=== PATIENT | male | born 1950 | race Caucasian/White ===

== ENCOUNTER 2020-02-02 12:37 | Observation (INO) | payer OTHER, SELFPAY ==
[2020-02-02] VITALS (17 sets, daily range): BP systolic 110–124; BP diastolic 76–97; PULSE 66–133; RESP 20–29; TEMP 36.4–36.6; O2SAT 92–99; BMI 28.7; BMI 29.9
--- NOTE | 2020-02-02 12:58 | DI.RAD.S_ITS ---
PROCEDURE: XR CHEST 1V INDICATIONS: chest pain TECHNIQUE: One view of the chest was acquired. COMPARISON: None. FINDINGS: Surgical changes and devices: None. Lungs and pleura: There is mild diffuse reticulonodular pulmonary density.. No pleural effusions or pneumothorax. Mediastinum: Mediastinal contours appear normal. Heart size is normal. Bones and chest wall: No suspicious bony lesions. Overlying soft tissues appear unremarkable. IMPRESSION: Mild diffuse edema versus atypical pneumonia. Dictated by: Cristina Piedra M.D. on 02/02/2020 at 13:36 Approved by: Cristina Piedra M.D. on 02/02/2020 at 13:36
[2020-02-02 13:05] LABS: Add Manual Diff / Slide Review NO; Basophils Absolute Auto 0 /uL (0-100); Basophils Percent Auto 0.8 % (0-2); Eosinophils Absolute Auto 100 /uL (0-450); Hematocrit 42.6 % (41-53); Hemoglobin 14.3 g/dL (13.5-17.5); Lymphocytes Absolute Auto 1500 /uL (1100-4500); Mean Corpuscular HGB Conc 33.7 % (30-36); Mean Corpuscular Hemoglobin 30.9 PG (26-34); Mean Corpuscular Volume 91.6 fL (80-100); Monocytes Absolute Auto 600 /uL (0-900); Monocytes Percent Auto 10.2 % (3-14); Neutrophils Absolute Auto 3500 /uL (1500-7000); Platelet Count 144 X10^3/uL (150-400); Red Blood Cell Count 4.65 X10^6/uL (4.5-5.9); Red Cell Distribution Width 13.9 % (11.6-14.8); White Blood Cell Count 5.7 X10^3/uL (4.5-11.0)
[2020-02-02 13:12] LABS: PTT Partial Thromboplastin Tim 35 SECONDS (26.4-36.2)
[2020-02-02 13:15] LABS: Alanine Aminotransferase 23 IU/L (<50); Albumin 4.1 g/dL (3.5-5.0); Albumin Globulin Ratio 1.6 (1.0-2.8); Alkaline Phosphatase 53 U/L (38-126); Aspartate Aminotransferase 25 IU/L (17-59); Blood Urea Nitrogen 20 mg/dL (9-20); Carbon Dioxide 24 mmol/L (22-32); Chloride 109 mmol/L (98-107); Creatine Kinase 152 U/L (55-170); Estimated Glomerular Filt Rate > 60.0 mL/min (>60); Globulin 2.6 g/dL (1.7-4.1); Glucose 88 mg/dL (80-110); HEMOLYSIS 49 (0-50); Lipase 69 U/L (23-300); Magnesium 2.3 mg/dL (1.6-2.3); Potassium 4.6 mmol/L (3.4-5.1); Sodium 138 mmol/L (137-145); Total Protein 6.7 g/dL (6.3-8.2)
[2020-02-02] MEDS: dilTIAZem 5 MG/ML SDV 10 MG IV (13:16)
[2020-02-02 13:21] LABS: D Dimer 394 ng/mL (<230)
[2020-02-02 13:26] LABS: NT-proBNP (BNP-Adult 18+) 1230 pg/mL (<125); Troponin I < 0.012 ng/mL (0.01-0.034)
[2020-02-02] MEDS: DILTIAZEM 125 MG/125 ML PIGGYBACK IV (13:29)
[2020-02-02 13:30] LABS: CKMB % Relative Index 1.6 % (1.5-5.0); Creatine Kinase MB 2.48 ng/mL (<2.37)
[2020-02-02] MEDS: SODIUM CHLORIDE 0.9% 1,000 ML 1000 ML IV (13:30)
[2020-02-02 14:00] LABS: TSH w/ Reflex to FT4 4.05 uIU/mL (0.47-4.68)
--- NOTE | 2020-02-02 14:54 | DI.ECHO.S_ITS ---
[facility]---------+ [facility] +---------+ : : [address] : : : : [id number] : : : : Phone: [phone] Echocardiogram Report + + :Name: LIN ARTEAGA Study Date: 02/03/2020 Height: 70 in : :[facility] Weight: 200 lb : : Gender: Male BSA: 2.1 m2 : :: 1950 Age: 69 yrs BP: 108/86 mmHg: :Reason For Study: AFIB : :Ordering Physician: HOSPITALIST, : :SIMÓN Performed By: Amanda Cali : :Referring: JOSIE SAHA : + + Interpretation Summary The left ventricle is normal in size. Left ventricular systolic function is low normal. The ejection fraction is estimated to be 50-55%. There are no focal wall motion abnormalities. Diastolic function could not be accurately assessed due to atrial fibrillation. The right ventricle is at the upper limits of normal in size. Right ventricular systolic function is at the lower limits of normal. The right ventricular systolic pressure is estimated to be at least 35 mmHg based on an estimated right atrial pressure of 8 mm Hg. The left atrium is severely dilated. The right atrium is moderate to severely dilated. There is moderate mitral regurgitation. There is mild to moderate tricuspid regurgitation. There is no other significant valvular heart disease. The aortic root is borderline dilated. The ascending aorta is moderately enlarged. Procedure: A two-dimensional transthoracic echocardiogram with color flow and Doppler was performed. The study quality was technically adequate. There is no prior echocardiogram noted for this patient. The patient was in atrial fibrillation with heart rates between 66-100 bpm during the exam. Left Ventricle: The left ventricle is normal in size. There is normal left ventricular wall thickness. Proximal septal thickening is noted. Left ventricular systolic function is low normal. The ejection fraction is estimated to be 50-55%. There are no focal wall motion abnormalities. Diastolic function could not be accurately assessed due to atrial fibrillation. Right Ventricle: The right ventricle is at the upper limits of normal in size. Right ventricular systolic function is at the lower limits of normal. Atria: The left atrium is severely dilated. The right atrium is moderate to severely dilated. There is no Doppler evidence for an interatrial shunt. Mitral Valve: The mitral valve leaflets appear mildly thickened, but open well. There is mild mitral annular calcification. There is moderate mitral regurgitation. Aortic Valve: The aortic valve is trileaflet. The aortic valve opens well. The aortic valve is slightly calcified. There is no aortic valve stenosis. There is trace aortic regurgitation. Tricuspid Valve: The tricuspid valve is normal in structure and function. The right ventricular systolic pressure is estimated to be at least 35 mmHg based on an estimated right atrial pressure of 8 mm Hg. There is mild to moderate tricuspid regurgitation. Pulmonic Valve: The pulmonic valve leaflets are thin and pliable; valve motion is normal. There is mild pulmonic regurgitation. There is no other significant valvular heart disease. Great Vessels: The aortic root is borderline dilated. The ascending aorta is moderately enlarged. The IVC is dilated (diameter is greater than 2.1 cm) yet it collapses greater than 50% with a sniff. This suggests a right atrial pressure of 8 mm Hg. Pericardium/ Pleura There is no pericardial effusion. There is no pleural effusion. MMode/2D Measurements & Calculations LVIDd: 5.1 cm LVOT diam: 2.1 cm LVIDs: 3.9 cm Ao root diam: 3.7 cm FS: 23.3 % asc Aorta Diam: 4.5 cm EPSS: 0.81 cm Ao Arch Diam (Prox Trans): 3.9 cm IVSd: 1.1 cm LVPWd: 0.86 cm LV manjarrez. diameter/BSA (cm/m^2): 2.4 LV sys. diameter/BSA (cm/m^2): 1.9 LA A2 area: 29.7 cm2 RA long axis: 6.3 cm LA A4 area: 28.6 cm2 RA area: 26.1 cm2 LA length (vol): 6.6 cm RA vol: 92.8 ml LA vol: 109.5 ml RA : 44.5 ml/m2 LA vol index: 52.5 ml/m2 IVC diam: 2.4 cm RVD1 (basal): 4.2 cm TAPSE: 1.6 cm Doppler Measurements & Calculations Ao V2 max: 116.4 cm/sec LVOT Max Tyron: 81.4 cm/sec Ao V2 mean: 79.8 cm/sec LV V1 max P.7 mmHg Ao max P.4 mmHg LV V1 VTI: 14.8 cm Ao mean P.9 mmHg CARLEEN(I,D): 2.5 cm2 Ao V2 VTI: 20.0 cm CARLEEN(V,D): 2.4 cm2 sev ratio: 0.74 CARLEEN indexed to BSA (cm^2/m^2): 1.2 MV E max tyron: 122.8 cm/sec TR max tyron: 260.7 cm/sec MV A max tyron: 1.8 cm/sec TR max P.2 mmHg MV E/A: 68.7 PA V2 max: 76.0 cm/sec Med Peak E' Tyron: 8.5 cm/sec PA V2 mean: 47.4 cm/sec E/E' med: 14.5 PA mean P.1 mmHg Lat Peak E' Tyron: 5.9 cm/sec PA pr(Accel): 35.3 mmHg E/E' lat: 20.9 E/e' average: 17.7 MV dec time: 0.13 sec SV(LVOT): 50.7 ml Reading Physician:01:40 PM
--- NOTE | 2020-02-02 14:55 | P.HP_ITS ---
History of Present Illness History of Present Illness Date Patient Seen: 02/02/20 Time Patient Seen: 14:55 Chief complaint: Tachycardia Narrative: Jose A Guzman is a 69-year-old male with past medical history hypertension, BPH who was referred from his primary care provider for an elevated heart rate. Patient was seeing his PMD today for some right shoulder pain which he has been experiencing when he was noted to have a heart rate in the 130s. EKG showed atrial fibrillation. Patient was sent to the emergency room for further evaluation. He denies any recent symptoms including palpitations, chest pain, shortness of breath, dizziness. He denies any orthop lenny, lower extremity edema, nausea, vomiting, or abdominal pain. He has had no recent fevers or chills. Patient is active and hikes multiple miles without any issues. He denies any history of atrial fibrillation in the past. Patient does state that he developed a cough on lisinopril, but also has a mild essential tremor for which his primary care doctor was going to the put him on a treatment for both his blood pressure and the tremor, however he has not started this medication yet. In the emergency room, patient was tachycardic into the 130s, but remainder of vital signs were unremarkable. EKG showed atrial flutter with 2-1 conduction and a bifascicular block. Initial chemistries were unremarkable including a potassium of 4.6, and a magnesium of 2.3. Initial troponin was negative. ProBNP was elevated at 1230. TSH was unremarkable at 4.05. D-dimer was negative for age at 394. CBC showed a mild thrombocytopenia with a platelet count of 144. He does not have any previous lab results in our electronic healthcare record. Patient was given 10 mg of IV diltiazem and started on a diltiazem infusion in the emergency room. He was subsequently admitted to the ICU on a diltiazem i nfusion for atrial fibrillation/flutter. Patient History Family & Social History Safety & Behavioral: Feels Safe in Current Yes Environment Been Physically Hurt or No Threatened By a Person Tobacco & Substance use: Smoking Status Never smoker alcohol intake frequency holiday/special occasion Substance Use Type does not use Meds Home Medications and Allergies Home Medications Medication Instructions Recorded Confirmed Type lisinopril 02/02/20 History sertraline mg 02/02/20 History tamsulosin mg PO 02/02/20 History Allergies Allergy/AdvReac Type Severity Reaction Status Date / Time No Known Drug Allergies Allergy Verified 02/02/20 13:13 Review of Systems Review of Systems Narrative: All other systems reviewed with the patient and are negative unless otherwise stated. Exam Vital Signs (past 8 hours): - 02/02/20 12:57 02/02/20 13:16 02/02/20 13:37 Temperature 98 F Pulse Rate 130 H 133 H Respiratory Rate 20 Blood Pressure 124/97 H 119/85 120/86 Pulse Oximetry 96 02/02/20 13:38 02/02/20 13:45 02/02/20 14:00 Temperature Pulse Rate 128 H 128 H 124 H Respiratory Rate 26 H 24 25 H Blood Pressure 118/83 116/88 Pulse Oximetry 92 96 95 02/02/20 14:15 Temperature Pulse Rate 122 H Respiratory Rate 29 H Blood Pressure 110/84 Pulse Oximetry 96 Oxygen Delivery Method Room Air Narrative Exam Narrative: GENERAL APPEARANCE: Well developed, well nourished, in no acute distress. SKIN: Inspection of the skin reveals no rashes, ulcerations or petechiae. HEENT: Normocephalic atraumatic, extraocular muscles are intact, oropharynx is clear and mucous membranes are moist, neck is supple without adenopathy NECK: Supple and symmetric. There was no thyroid enlargement, and no tenderness, or masses were felt. CHEST: Normal AP diameter and normal contour without any kyphoscoliosis. LUNGS: Auscultation of the lungs revealed no wheezes, rhonchi, or rales. CARDIOVASCULAR: Tachycardic, with regular rhythm but intermittently irregularly irregular without any murmurs, gallops, rubs. Peripheral pulses were 2+ and sym metric. ABDOMEN: Soft and nontender with normal bowel sounds. No ascites was noted. MUSCULOSKELETAL: There was no tenderness or effusions noted. Muscle strength and tone were normal. EXTREMITIES: No cyanosis, clubbing or edema. NEUROLOGIC: Alert and oriented x 3. Normal affect. Gait was normal. Strength is +5/5 in the Upper Extremities and Lower Extremities Bilaterally. Sensation to touch was normal. Objective Labs Result Diagrams: 02/02/20 12:30 02/02/20 12:30 Labs: Laboratory Results - last 24 hr 02/02/20 02/02/20 02/02/20 12:30 12:30 12:30 WBC 5.7 RBC 4.65 Hgb 14.3 Hct 42.6 MCV 91.6 MCH 30.9 MCHC 33.7 RDW 13.9 Plt Count 144 L Neut % (Auto) 61.0 Lymph % (Auto) 26.0 [place] % (Auto) 10.2 Eos % (Auto) 2.0 Baso % (Auto) 0.8 Neut # (Auto) 3500 Lymph # (Auto) 1500 [place] # (Auto) 600 Eos # (Auto) 100 Baso # (Auto) 0 PT 12.0 INR 1.0 APTT 35 D-Dimer Sodium 138 Potassium 4.6 Chloride 109 H Carbon Dioxide 24 BUN 20 Creatinine 0.80 Estimated GFR > 60.0 BUN/Creatinine Ratio 25.0 H Glucose 88 Calcium 9.0 Magnesium 2.3 Total Bilirubin 1.0 AST 25 ALT 23 Alkaline Phosphatase 53 Total Creatine Kinase 152 CK-MB (CK-2) 2.48 H CK-MB (CK-2) Rel Index 1.6 Troponin I < 0.012 NT-Pro-B Natriuret Pep 1230 H Total Protein 6.7 Albumin 4.1 Globulin 2.6 Albumin/Globulin Ratio 1.6 Lipase 69 TSH 02/02/20 02/02/20 12:30 12:30 WBC RBC Hgb Hct MCV MCH MCHC RDW Plt Count Neut % (Auto) Lymph % (Auto) [place] % (Auto) Eos % (Auto) Baso % (Auto) Neut # (Auto) Lymph # (Auto) [place] # (Auto) Eos # (Auto) Baso # (Auto) PT INR APTT D-Dimer 394 H Sodium Potassium Chloride Carbon Dioxide BUN Creatinine Estimated GFR BUN/Creatinine Ratio Glucose Calcium Magnesium Total Bilirubin AST ALT Alkaline Phosphatase Total Creatine Kinase CK-MB (CK-2) CK-MB (CK-2) Rel Index Troponin I NT-Pro-B Natriuret Pep Total Protein Albumin Globulin Albumin/Globulin Ratio Lipase TSH 4.05 Assessment & Plan Assessment & Plan narrative: Jose A Guzman is a 69-year-old male with past medical history hypertension, BPH who was referred from his primary care provider for an incidentally found elevated heart rate. He is admitted with atrial flutter with rapid ventricular response. 1. Atrial fibrillation/flutter with rapid ventricular response, unknown type or duration, present on admission -patient with a new diagnosis of atrial fibrillation/flutter -he is currently asymptomatic -chest x-ray shows possible fluid overload and he does have some bibasilar crackles, but without symptoms this may be due to acute onset of atrial fibrillation. ProBNP elevated at 1230. If he becomes more short of breath or hypoxic will start Lasix therapy. -patient was started on IV diltiazem infusion the emergency room. Will attempt to titrate off of this, and will start metoprolol 25 mg twice daily starting now. -chads Vasc score of 2 currently, discussed stroke risk with patient and he elects to start anticoagulation at this time. Will start with apixaban 5 mg twice daily starting now. -will obtain a complete echocardiogram -TSH unremarkable at 4. Further risk stratify with fasting lipids and A1c. 2. Hypertension, chronic, stable -patient was going to switch between his current lisinopril which he complains of a chronic cough with and a beta-elis. Will continue to hold lisinopril at this time and optimize rate control with beta-elis therapy preferentially. He is currently normotensive. 3. BPH, chronic, stable -patient is currently asymptomatic -continue home Flomax Code: Full, states his surrogate decision maker is his . Dispo: Admitted to the ICU for atrial fibrillation requiring diltiazem infusion DVT: Will start full-dose anticoagulation with apixaban COVID 19 status: no current symptoms, testing ordered and pending. COVID-19 COVID-19 status: Result pending Result date/Date tested (Pos, Neg/Pending): 02/02/20 Scores CHADS-VASc Congestive heart failure: no Hypertension: yes Age 75 years or older: no Diabetes mellitus: no Stroke, TIA, or TE: no Vascular disease: no Age 65 to 74 years: yes Sex category (female): Male CHADS-VASc Score: 2
[2020-02-02] MEDS: APIXABAN 5 MG TABLET PO ×2 (15:44→20:31)
[2020-02-02] MEDS: METOPROLOL ER 25 MG TABLET PO ×2 (15:44→20:31)
[2020-02-02 16:25] LABS: COVID19 -Nasal RAPID Negative (Negative)
--- NOTE | 2020-02-02 20:29 | ED_ITS ---
HPI - Arrhythmia/Palpitations General Chief Complaint: Arrhythmia/Palpitations Stated Complaint: Tachycardia Time Seen by Provider: 02/02/20 13:05 Source: patient Mode of arrival: EMS Limitations: no limitations History of Present Illness HPI narrative: CC: Rapid HR. HPI: The patient is a 69-year-old male who states that he went to the office to have his shoulder checked out and Dr. Painter discovered that the patient had a rapid heart rate and sent him here to the emergency department to be further evaluated. The patient denies being aware that he has rapid heart rate and rib palpitations or racing of his heart. He does not know when this happened or develops. He has never before had rapid heart rate or been told that he had atrial fibrillation. The patient noticed that during the past week however he w as doing yd work and he is normally able to complete the task without taking multiple rests. However he divided the yd into sections because he just became more exhausted than usual and had to take break and rest. This is been going on over the last couple of days. He has been more fatigued and weaker than usual over the last few days. He denies any chest pain or shortness of breath as well as any neck pain shoulder pain jaw pain. He has had no back pain. He denies any fever chills or sweats as well as a headache any sore throat nasal drainage shortness of breath cough back pain. He has had no abdominal pain nausea vomiting diarrhea or any urinary symptoms. The patient denies smoking cigarettes or using marijuana or any other drugs he does drink alcohol periodically. He admits to a history of hypertension but has had no diabetes mellitus myocardial infarction asthma COPD or stroke. Related Data Home Medications Medication Instructions Recorded Confirmed lisinopril 10 mg PO BEDTIME 02/02/20 02/02/20 sertraline 25 mg PO DAILY 02/02/20 02/02/20 tamsulosin 0.4 mg PO DAILY 02/02/20 02/02/20 Allergies Allergy/AdvReac Type Severity Reaction Status Date / Time No Known Drug Allergies Allergy Verified 02/02/20 13:13 Review of Systems Review of Systems Narrative: His review of systems were all negative except for those mentioned in the history of present illness. Patient History Social History household members: spouse and children Smoking Status: Never smoker Smoking Status: Never smoker alcohol intake frequency: holidays/special occasions only Substance Use Type: does not use Exam Narrative Exam Narrative: PHYSICAL EXAM: CONSTITUTIONAL: Awake, Alert, Oriented, Coherent, Cooperative pleasant in NAD. Does not appear toxic or ill. HEAD: AT/NC EENT: PERRL, FROM of eyes, NOSE:No epistaxis or nasal drainage MOUTH:Oral mucosa is moist and pink, NECK: Supple, no obvious JVD, Trachea is midline without stridor, no palpable LN. SPINE: Palpation of the cervical, Thoracic, Lumbar or Sacral spine reveals no gross deformity or tenderness. No CVA tenderness. THORAX: No deformity, retractions, chest wall tenderness. LUNGS: Clear, symmetrical breath sounds without respiratory distress. HEART: Tachycardic irregular no appreciable murmur. ABDOMEN: Soft, non-tender, normal bowel sounds without guarding, rebound, rigidi ty or palpable mass. EXTREMITIES: No edema, deformity, tenderness or cyanosis. SKIN: No rash, bruising, petechiae or purpura. NEURO: Awake, alert, oriented, conversive, cranial nerves II-XII are symmetrical , moves all 4 extremities and is ambulatory. Initial Vital Signs Initial Vital Signs: Vital Signs Temperature 98 F 02/02/20 12:57 Pulse Rate 130 H 02/02/20 12:57 Respiratory Rate 20 02/02/20 12:57 Blood Pressure 124/97 H 02/02/20 12:57 Pulse Oximetry 96 02/02/20 12:57 Course Orders Ordered: ED Orders 02/02/20 12:30 Complete Blood Count AUTO DIFF Stat Comprehensive Metabolic Panel Stat D Dimer Stat Lipase Stat Magnesium Stat NT-proBNP (BNP-Adult 18+) Stat Partial Thromboplastin Time Stat Prothrombin Time INR Stat TSH w/ Reflex to FT4 Stat Troponin & CK Cardiac Panel Stat 02/02/20 12:58 XR chest 1V Stat EKG-12 Lead Stat Acetaminophen (Tylenol) 650 mg PO Q6HR PRN PRN Reason: Fever/Mild Pain (1-3) Apixaban (Eliquis) 5 mg PO BID GONZALO Last Admin: 02/02/20 20:31 Dose: 5 mg Documented by: DILTIAZEM (Diltiazem 125 Mg/125 Ml-D5w) 125 mg in 125 mls @ 5 mls/hr IV TITRATE GONZALO; Protocol Last Titration: 02/02/20 19:13 Dose: 0 mg/hr, 0 mls/hr Documented by: Titration: 02/02/20 18:46 Dose: 2.5 mg/hr, 2.5 mls/hr Documented by: Titration: 02/02/20 17:39 Dose: 5 mg/hr, 5 mls/hr Documented by: Titration: 02/02/20 16:49 Dose: 7.5 mg/hr, 7.5 mls/hr Documented by: Titration: 02/02/20 15:00 Dose: 10 mg/hr, 10 mls/hr Documented by: Admin: 02/02/20 13:29 Dose: 5 mg/hr, 5 mls/hr Documented by: GILBERTO Metoprolol Succinate (Toprol Xl) 25 mg PO BID GONZALO Last Admin: 02/02/20 20:31 Dose: 25 mg Documented by: Discontinued Medications Apixaban (Eliquis) 5 mg PO NOW ONE Stop: 02/02/20 14:54 Last Admin: 02/02/20 15:44 Dose: 5 mg Documented by: HU Diltiazem HCl (Cardizem) 10 mg IV NOW ONE Stop: 02/02/20 13:06 Last Admin: 02/02/20 13:16 Dose: 10 mg Documented by: GILBERTO Sodium Chloride (Normal Saline 0.9%) 1,000 mls @ 1,000 mls/hr IV BOLUS ONE Stop: 02/02/20 14:04 Last Infusion: 02/02/20 15:58 Dose: 0 mls/hr Documented by: Admin: 02/02/20 13:30 Dose: 1,000 mls/hr Documented by: GILBERTO Metoprolol Succinate (Toprol Xl) 25 mg PO NOW ONE Stop: 02/02/20 14:55 Last Admin: 02/02/20 15:44 Dose: 25 mg Documented by: HU Vital Signs Vital signs: Vital Signs - 8 hr 02/02/20 12:57 02/02/20 13:16 02/02/20 13:37 Temperature 98 F Pulse Rate 130 H 133 H Respiratory Rate 20 Blood Pressure 124/97 H 119/85 120/86 Pulse Oximetry 96 02/02/20 13:38 Temperature Pulse Rate 128 H Respiratory Rate 26 H Blood Pressure Pulse Oximetry 92 MDM - Arrhythmia/Palpitations Lab Data Result diagrams: 02/02/20 12:30 02/02/20 12:30 Labs: Lab Results 02/02/20 02/02/20 02/02/20 Range/Units 12:30 12:30 12:30 WBC 5.7 (4.5-11.0) X10^3/uL RBC 4.65 (4.5-5.9) X10^6/uL Hgb 14.3 (13.5-17.5) g/dL Hct 42.6 (41-53) % MCV 91.6 (80-100) fL MCH 30.9 (26-34) PG MCHC 33.7 (30-36) % RDW 13.9 (11.6-14.8) % Plt Count 144 L (150-400) X10^3/uL Neut % (Auto) 61.0 (50-75) % Lymph % (Auto) 26.0 (25-40) % [place] % (Auto) 10.2 (3-14) % Eos % (Auto) 2.0 (2-4) % Baso % (Auto) 0.8 (0-2) % Neut # (Auto) 3500 (1573-4975) /uL Lymph # (Auto) 1500 (6909-5784) /uL [place] # (Auto) 600 (0-900) /uL Eos # (Auto) 100 (0-450) /uL Baso # (Auto) 0 (0-100) /uL PT 12.0 (10.1-12.7) SECONDS INR 1.0 (0.9-1.3) APTT 35 (26.4-36.2) SECONDS D-Dimer (<230) ng/mL Sodium 138 (137-145) mmol/L Potassium 4.6 (3.4-5.1) mmol/L Chloride 109 H (98-107) mmol/L Carbon Dioxide 24 (22-32) mmol/L BUN 20 (9-20) mg/dL Creatinine 0.80 (0.66-1.25) mg/dL Estimated GFR > 60.0 (>60) mL/min BUN/Creatinine Ratio 25.0 H (6-22) Glucose 88 (80-110) mg/dL Calcium 9.0 (8.4-10.2) mg/dL Magnesium 2.3 (1.6-2.3) mg/dL Total Bilirubin 1.0 (0.2-1.3) mg/dL AST 25 (17-59) IU/L ALT 23 (<50) IU/L Alkaline Phosphatase 53 (38-126) U/L Total Creatine Kinase 152 (55-170) U/L CK-MB (CK-2) 2.48 H (<2.37) ng/mL CK-MB (CK-2) Rel Index 1.6 (1.5-5.0) % Troponin I < 0.012 (0.01-0.034) ng/mL NT-Pro-B Natriuret Pep 1230 H (<125) pg/mL Total Protein 6.7 (6.3-8.2) g/dL Albumin 4.1 (3.5-5.0) g/dL Globulin 2.6 (1.7-4.1) g/dL Albumin/Globulin Ratio 1.6 (1.0-2.8) Lipase 69 (23-300) U/L TSH (0.47-4.68) uIU/mL 02/02/20 02/02/20 Range/Units 12:30 12:30 WBC (4.5-11.0) X10^3/uL RBC (4.5-5.9) X10^6/uL Hgb (13.5-17.5) g/dL Hct (41-53) % MCV (80-100) fL MCH (26-34) PG MCHC (30-36) % RDW (11.6-14.8) % Plt Count (150-400) X10^3/uL Neut % (Auto) (50-75) % Lymph % (Auto) (25-40) % [place] % (Auto) (3-14) % Eos % (Auto) (2-4) % Baso % (Auto) (0-2) % Neut # (Auto) (9577-9748) /uL Lymph # (Auto) (3775-7610) /uL [place] # (Auto) (0-900) /uL Eos # (Auto) (0-450) /uL Baso # (Auto) (0-100) /uL PT (10.1-12.7) SECONDS INR (0.9-1.3) APTT (26.4-36.2) SECONDS D-Dimer 394 H (<230) ng/mL Sodium (137-145) mmol/L Potassium (3.4-5.1) mmol/L Chloride (98-107) mmol/L Carbon Dioxide (22-32) mmol/L BUN (9-20) mg/dL Creatinine (0.66-1.25) mg/dL Estimated GFR (>60) mL/min BUN/Creatinine Ratio (6-22) Glucose (80-110) mg/dL Calcium (8.4-10.2) mg/dL Magnesium (1.6-2.3) mg/dL Total Bilirubin (0.2-1.3) mg/dL AST (17-59) IU/L ALT (<50) IU/L Alkaline Phosphatase (38-126) U/L Total Creatine Kinase (55-170) U/L CK-MB (CK-2) (<2.37) ng/mL CK-MB (CK-2) Rel Index (1.5-5.0) % Troponin I (0.01-0.034) ng/mL NT-Pro-B Natriuret Pep (<125) pg/mL Total Protein (6.3-8.2) g/dL Albumin (3.5-5.0) g/dL Globulin (1.7-4.1) g/dL Albumin/Globulin Ratio (1.0-2.8) Lipase (23-300) U/L TSH 4.05 (0.47-4.68) uIU/mL Discharge Plan Departure Patient Disposition: Admitted as Observation Clinical Impression: Palpitations Atrial fibrillation Qualifiers: Atrial fibrillation type: unspecified Qualified Code(s): I48.91 - Unspecified atrial fibrillation Discharge Date/Time: 02/02/20 14:35 Instructions: Atrial Fibrillation, DI for Atrial Fibrillation Referrals: Ximena Canchola MD [Primary Care Provider] - Admit Date/Time: 02/02/20 13:40 Admit Provider: Elijah Jalloh
[2020-02-03] VITALS (20 sets, daily range): BP systolic 103–125; BP diastolic 57–87; PULSE 56–127; RESP 14–32; TEMP 36–37.1; O2SAT 93–97
[2020-02-03] MEDS: ACETAMINOPHEN 325 MG TABLET 650 MG PO (04:57)
[2020-02-03 05:22] LABS: Add Manual Diff / Slide Review NO; Basophils Absolute Auto 0 /uL (0-100); Basophils Percent Auto 0.6 % (0-2); Eosinophils Absolute Auto 100 /uL (0-450); Eosinophils Percent Auto 2.6 % (2-4); Hematocrit 41.2 % (41-53); Hemoglobin 13.9 g/dL (13.5-17.5); Lymphocytes Absolute Auto 1200 /uL (1100-4500); Lymphocytes Percent Auto 24.4 % (25-40); Mean Corpuscular HGB Conc 33.7 % (30-36); Mean Corpuscular Hemoglobin 30.9 PG (26-34); Mean Corpuscular Volume 91.6 fL (80-100); Monocytes Absolute Auto 500 /uL (0-900); Monocytes Percent Auto 10.5 % (3-14); Neutrophils Absolute Auto 3000 /uL (1500-7000); Neutrophils Percent Auto 61.9 % (50-75); Platelet Count 130 X10^3/uL (150-400); Red Blood Cell Count 4.49 X10^6/uL (4.5-5.9); Red Cell Distribution Width 13.5 % (11.6-14.8); White Blood Cell Count 4.8 X10^3/uL (4.5-11.0)
[2020-02-03 05:28] LABS: Alanine Aminotransferase 19 IU/L (<50); Albumin 3.4 g/dL (3.5-5.0); Albumin Globulin Ratio 1.5 (1.0-2.8); Alkaline Phosphatase 51 U/L (38-126); Aspartate Aminotransferase 18 IU/L (17-59); Bilirubin Total 1.4 mg/dL (0.2-1.3); Bilirubin Unconjugated 1.4 mg/dL (0.0-1.1); Blood Urea Nitrogen 18 mg/dL (9-20); Calcium 8.6 mg/dL (8.4-10.2); Carbon Dioxide 25 mmol/L (22-32); Chloride 109 mmol/L (98-107); Cholesterol 141 mg/dL (140-199); Estimated Glomerular Filt Rate > 60.0 mL/min (>60); Globulin 2.2 g/dL (1.7-4.1); Glucose 90 mg/dL (80-110); HDL Cholesterol 40 mg/dL (40-60); HEMOLYSIS < 15 (0-50); LDL Cholesterol Calculated 77 mg/dL (<100); Magnesium 2.2 mg/dL (1.6-2.3); Potassium 4.9 mmol/L (3.4-5.1); Sodium 137 mmol/L (137-145); Total Protein 5.6 g/dL (6.3-8.2); Triglycerides 120 mg/dL (35-150)
[2020-02-03 05:29] LABS: Hemoglobin A1C% w Est Avg Glu 5.4 % (4.0-6.0)
[2020-02-03 05:35] LABS: Troponin I 0.014 ng/mL (0.01-0.034)
--- NOTE | 2020-02-03 06:09 | PC.NURSE ---
Engineer Sergeant Note-Patient remains in A-flutter, rate 80s at rest, increases to 120s with activity, denies chest pain, palpitations, dizziness, or shortness of breath. Slept with his own C-pap, no additional O2, SpO2 90-98%, does have apnea. Tylenol given for right shoulder pain.
[2020-02-03] MEDS: APIXABAN 5 MG TABLET PO ×2 (07:39→20:35)
[2020-02-03] MEDS: METOPROLOL ER 25 MG TABLET PO (07:39)
[2020-02-03] MEDS: SODIUM CHLORIDE 0.9% FLUSH 10 ML IV ×2 (07:39→21:21)
[2020-02-03] MEDS: METOPROLOL ER 50 MG TABLET PO ×2 (08:42→20:34)
--- NOTE | 2020-02-03 08:49 | CM.DANOTE ---
Addendum entered by Basia Jacob LPN 02/03/20 10:34: Met with pt as planned during Team Bedside Rounds. Introduced self and role. Dr. Jalloh explained to all that pt was taken of of the diltiazem infusion and may need to go back on it. EHCO is planned. Pt lives with his in [place]. Plan: is home setting when stable for same. Original Note: Discharge Planning/Care Management DCP: assessment: Case received, EMR reviewed. Pt is a 69 year old male who admitted yesterday afternoon to care of hospitalist team. PCP: Ximena Canchola Payer: [employer] Admission status: in review by UR RN. Pt is functionally independent in the community and an active hiker. He is admitted to ICU setting from the ER on a diltiazem infusion. Will plan to see pt during Team Bedside Rounds. CM Discharge Assessment Start: 02/03/20 08:48 Freq: Status: Active Protocol: Document 02/03/20 08:49 ITV (Rec: 02/03/20 08:49 ITV [id number]) Discharge Planning Assessment Advance Directives? No History Provided By Medical Record Has Patient been admitted in last 30 No days? Prior Living Arrangements House Household Members spouse,children Independent with ADL's Yes Is patient alert and oriented? Yes Review Status In Process
--- NOTE | 2020-02-03 13:46 | PM.PN.1 ---
Subjective Subjective Date Patient Seen: 02/03/20 Time Patient Seen: 09:00 Interval history: Jose A Guzman is a 69-year-old male with a past medical history of hypertension who was admitted for a new diagnosis of atrial fibrillation/flutter with rapid ventricular response. Overnight he had hills diltiazem infusion turned off, however his rate began to increase today despite increasing doses of metoprolol and he needed to be restarted on diltiazem infusion. He still remains asymptomatic denying shortness of breath, chest pain, palpitations, dizziness, nausea, vomiting. Echocardiogram was performed which showed dilated left and right atria, but a ejection fraction of 50-55% with no focal wall motion abnormalities. Moderate MR and TR, but no other significant valvular abnormalities. Will now be able to add diltiazem oral given ejection fraction, to trying get him rate controlled off of diltiazem IV infusion. Exam Vital Signs (past 8 hours): - 02/03/20 07:36 02/03/20 08:07 02/03/20 09:53 Temperature 97.0 F L Pulse Rate 118 H 127 H 123 H Respiratory Rate 32 H 18 Blood Pressure 125/87 111/76 Pulse Oximetry 97 96 02/03/20 10:00 02/03/20 11:47 02/03/20 12:00 Temperature Pulse Rate 122 H 117 H 65 Respiratory Rate 19 32 H 21 Blood Pressure 108/86 103/84 119/80 Pulse Oximetry Oxygen Delivery Method Room Air Oxygen Flow Rate 0 Narrative Exam Narrative: GENERAL APPEARANCE: Well developed, well nourished, in no acute distress. SKIN: Inspection of the skin reveals no rashes, ulcerations or petechiae. HEENT: Normocephalic atraumatic, extraocular muscles are intact, oropharynx is clear and mucous membranes are moist, neck is supple without adenopathy NECK: Supple and symmetric. There was no thyroid enlargement, and no tenderness, or masses were felt. CHEST: Normal AP diameter and normal contour without any kyphoscoliosis. LUNGS: Auscultation of the lungs revealed no wheezes, rhonchi, or rales. CARDIOVASCULAR: Tachycardic, with regular rhythm but intermittently irregularly irregular without any murmurs, gallops, rubs. Peripheral pulses were 2+ and symmetric. ABDOMEN: Soft and nontender with normal bowel sounds. No ascites was noted. MUSCULOSKELETAL: There was no tenderness or effusions noted. Muscle strength and tone were normal. EXTREMITIES: No cyanosis, clubbing or edema. NEUROLOGIC: Alert and oriented x 3. Normal affect. Gait was normal. Strength is +5/5 in the Upper Extremities and Lower Extremities Bilaterally. Sensation to touch was normal. Objective Labs Result Diagrams: 02/03/20 04:45 02/03/20 04:45 Labs: Laboratory Results - last 24 hr 02/02/20 02/02/20 02/03/20 12:30 14:10 04:45 WBC 4.8 RBC 4.49 L Hgb 13.9 Hct 41.2 MCV 91.6 MCH 30.9 MCHC 33.7 RDW 13.5 Plt Count 130 L Neut % (Auto) 61.9 Lymph % (Auto) 24.4 L [place] % (Auto) 10.5 Eos % (Auto) 2.6 Baso % (Auto) 0.6 Neut # (Auto) 3000 Lymph # (Auto) 1200 [place] # (Auto) 500 Eos # (Auto) 100 Baso # (Auto) 0 Sodium Potassium Chloride Carbon Dioxide BUN Creatinine Estimated GFR BUN/Creatinine Ratio Glucose Hemoglobin A1c Calcium Magnesium Total Bilirubin Conjugated Bilirubin Unconjugated Bilirubin AST ALT Alkaline Phosphatase Troponin I Total Protein Albumin Globulin Albumin/Globulin Ratio Triglycerides Cholesterol LDL Cholesterol, Calc HDL Cholesterol TSH 4.05 COVID-19 PCR Negative 02/03/20 02/03/20 02/03/20 04:45 04:45 04:45 WBC RBC Hgb Hct MCV MCH MCHC RDW Plt Count Neut % (Auto) Lymph % (Auto) [place] % (Auto) Eos % (Auto) Baso % (Auto) Neut # (Auto) Lymph # (Auto) [place] # (Auto) Eos # (Auto) Baso # (Auto) Sodium 137 Potassium 4.9 Chloride 109 H Carbon Dioxide 25 BUN 18 Creatinine 0.90 Estimated GFR > 60.0 BUN/Creatinine Ratio 20.0 Glucose 90 Hemoglobin A1c 5.4 Calcium 8.6 Magnesium 2.2 Total Bilirubin 1.4 H Conjugated Bilirubin 0.0 Unconjugated Bilirubin 1.4 H AST 18 ALT 19 Alkaline Phosphatase 51 Troponin I 0.014 Total Protein 5.6 L Albumin 3.4 L Globulin 2.2 Albumin/Globulin Ratio 1.5 Triglycerides 120 Cholesterol 141 LDL Cholesterol, Calc 77 HDL Cholesterol 40 TSH COVID-19 PCR Assessment & Plan Assessment & Plan narrative: Jose A Guzman is a 69-year-old male with past medical history hypertension, BPH who was referred from his primary care provider for an incidentally found elevated heart rate. He is admitted with atrial flutter with rapid ventricular response. 1. Atrial fibrillation/flutter with rapid ventricular response, unknown type or duration, present on admission -patient with a new diagnosis of atrial fibrillation/flutter -he remains asymptomatic -chest x-ray shows possible fluid overload and he does have some bibasilar crackles, but without symptoms this may be due to acute onset of atrial fibrillation. ProBNP elevated at 1230. TTE showed elevated pressures will give 20 mg IV lasix to see if can achieve better rate control. -patient was started on IV diltiazem infusion the emergency room. Will now start on both metoprolol and diltiazem. Metoprolol not effective so far with rate control up to 50 mg BID, will start dilt 60 mg PO BID. Continue to try and wean from diltiazem infusion. -chads Vasc score of 2 currently, discussed stroke risk with patient and he elected to start anticoagulation. Continue apixaban 5 mg BID. -Echocardiogram was performed which showed dilated left and right atria, but a ejection fraction of 50-55% with no focal wall motion abnormalities. Moderate MR and TR, but no other significant valvular abnormalities. -TSH unremarkable at 4. Further risk stratify with fasting lipids and A1c. 2. Hypertension, chronic, stable -patient was going to switch between his current lisinopril which he complains of a chronic cough with and a beta-elis. Will continue to hold lisinopril at this time and optimize rate control therapy preferentially. He is currently normotensive. 3. BPH, chronic, stable -patient is currently asymptomatic -continue home Flomax Code: Full, states his surrogate decision maker is his . Dispo: Observation status in the ICU, will discharge home once adequate rate control is achieved. DVT: apixaban COVID 19 status: negative.
[2020-02-03] MEDS: dilTIAZem SR 60 MG PO ×2 (14:50→20:34)
[2020-02-03] MEDS: FUROSEMIDE 20 MG/2 ML VIAL IV (14:50)
[2020-02-03] MEDS: DILTIAZEM 125 MG/125 ML PIGGYBACK IV (19:38)
--- NOTE | 2020-02-03 22:29 | PC.NURSE ---
End of shift report: Dilt drip d/c'd at 21:20, Pt received PO metoprolol and diltiazem at that time. HR has maintained at 66bpm and BP 120/58. Ambulating ad caron in room and denies pain or discomfort. Telemetry continues to show aflutter.
[2020-02-04 00:45] VITALS: BP 127/88; PULSE 87; RESP 20; TEMP 36.2; O2SAT 98
[2020-02-04 04:35] VITALS: BP 124/89; PULSE 65; RESP 16; TEMP 35.9; O2SAT 98
[2020-02-04 05:13] LABS: Add Manual Diff / Slide Review NO; Basophils Absolute Auto 0 /uL (0-100); Basophils Percent Auto 0.7 % (0-2); Eosinophils Absolute Auto 100 /uL (0-450); Eosinophils Percent Auto 2.4 % (2-4); Hemoglobin 14.3 g/dL (13.5-17.5); Lymphocytes Absolute Auto 1200 /uL (1100-4500); Lymphocytes Percent Auto 26.5 % (25-40); Mean Corpuscular HGB Conc 33.2 % (30-36); Mean Corpuscular Hemoglobin 30.4 PG (26-34); Mean Corpuscular Volume 91.4 fL (80-100); Monocytes Absolute Auto 500 /uL (0-900); Monocytes Percent Auto 10.2 % (3-14); Neutrophils Absolute Auto 2800 /uL (1500-7000); Neutrophils Percent Auto 60.2 % (50-75); Platelet Count 139 X10^3/uL (150-400); Red Cell Distribution Width 13.5 % (11.6-14.8); White Blood Cell Count 4.7 X10^3/uL (4.5-11.0)
[2020-02-04 05:16] LABS: Alanine Aminotransferase 19 IU/L (<50); Albumin 3.8 g/dL (3.5-5.0); Albumin Globulin Ratio 1.6 (1.0-2.8); Alkaline Phosphatase 49 U/L (38-126); Aspartate Aminotransferase 20 IU/L (17-59); BUN Creatinine Ratio 23.5 (6-22); Bilirubin Total 1.4 mg/dL (0.2-1.3); Bilirubin Unconjugated 1.3 mg/dL (0.0-1.1); Blood Urea Nitrogen 20 mg/dL (9-20); Carbon Dioxide 28 mmol/L (22-32); Chloride 107 mmol/L (98-107); Estimated Glomerular Filt Rate > 60.0 mL/min (>60); Globulin 2.4 g/dL (1.7-4.1); Glucose 99 mg/dL (80-110); HEMOLYSIS 18 (0-50); Magnesium 2.2 mg/dL (1.6-2.3); Potassium 4.9 mmol/L (3.4-5.1); Sodium 139 mmol/L (137-145); Total Protein 6.2 g/dL (6.3-8.2)
--- NOTE | 2020-02-04 05:57 | PC.NURSE ---
Rn Pediatric Icu Note-Patient remains in A-flutter 3:1, BBB, HR increased only to 100 when OOB to BR, denies chest pain, palpitations, or dizziness. VSS, no c/o right shoulder pain, elevated on pillow throughout night.
[2020-02-04 08:00] VITALS: BP 128/87; PULSE 92; RESP 18; TEMP 36.4; O2SAT 98
[2020-02-04] MEDS: SODIUM CHLORIDE 0.9% FLUSH 10 ML IV (08:21)
[2020-02-04] MEDS: ACETAMINOPHEN 325 MG TABLET 650 MG PO (08:21)
[2020-02-04] MEDS: APIXABAN 5 MG TABLET PO (08:21)
[2020-02-04] MEDS: TAMSULOSIN 0.4 MG CAPSULE PO (08:21)
[2020-02-04] MEDS: METOPROLOL ER 50 MG TABLET PO ×2 (08:21→09:18)
[2020-02-04] MEDS: SERTRALINE 25 MG TABLET PO (08:23)
[2020-02-04] MEDS: dilTIAZem SR 60 MG PO (08:24)
[2020-02-04 09:18] VITALS: BP 111/79; PULSE 67
--- NOTE | 2020-02-04 10:53 | PM.DS.1 ---
History of Present Illness History of Present Illness Date Patient Seen: 02/04/20 Time Patient Seen: 10:53 Chief complaint: Tachycardia Narrative: Jose A Guzman is a 69-year-old male with past medical history hypertension, BPH who was referred from his primary care provider for an elevated heart rate. Patient was seeing his PMD today for some right shoulder pain which he has been experiencing when he was noted to have a heart rate in the 130s. EKG showed atrial fibrillation. Patient was sent to the emergency room for further evaluation. He denies any recent symptoms including palpitations, chest pain, shortness of breath, dizziness. He denies any orthopnea, lower extremity edema, nausea, vomiting, or abdominal pain. He has had no recent fevers or chills. Patient is active and hikes multiple miles without any issues. He denies any history of atrial fibrillation in the past. Patient does state that he developed a cough on lisinopril, but also has a mild essential tremor for which his primary care doctor was going to the put him on a treatment for both his blood pressure and the tremor, however he has not started this medication yet. In the emergency room, patient was tachycardic into the 130s, but remainder of vital signs were unremarkable. EKG showed atrial flutter with 2-1 conduction and a bifascicular block. Initial chemistries were unremarkable including a potassium of 4.6, and a magnesium of 2.3. Initial troponin was negative. ProBNP was elevated at 1230. TSH was unremarkable at 4.05. D-dimer was negative for age at 394. CBC showed a mild thrombocytopenia with a platelet count of 144. He does not have any previous lab results in our electronic healthcare record. Patient was given 10 mg of IV diltiazem and started on a diltiazem infusion in the emergency room. He was subsequently admitted to the ICU on a diltiazem infusion for atrial fibrillation/flutter. Discharge Providers Provider Date of admission: 02/02/20 13:40 Discharge Date: 02/05/20 Primary care physician: Ximena Canchola MD Discharge provider: Elijah Jalloh DO Summary Hospital Course Discharge Diagnosis: Please see hospital course by problem list below: Hospital Course: Jose A Guzman is a 69-year-old male with past medical history hypertension, BPH who was referred from his primary care provider for an incidentally found elevated heart rate. He is admitted with atrial flutter with rapid ventricular response. He had a fairly unremarkable echocardiogram and was titrated up on rate control medications. On the day of discharge patient's rate was adequately controlled but he remained in atrial flutter. He was discharged home on final regimen of metoprolol 100 mg BID and diltiazem 120 mg daily. 1. Atrial fibrillation/flutter with rapid ventricular response, unknown type or duration, present on admission -patient with a new diagnosis of atrial fibrillation/flutter -he remains asymptomatic -chest x-ray showed possible fluid overload and he did have some bibasilar crackles, but without symptoms this may be due to acute onset of atrial fibrillation. ProBNP elevated at 1230. TTE showed elevated pressures but did not seemingly respond to any lasix therapy. -patient was started on IV diltiazem infusion the emergency room. Started both metoprolol initially then dilitiazem once EF was noted not to be decreased. Metoprolol not as effective with rate control initially but once patient was started on 100 mg twice daily with diltiazem 60 mg BID his heart rate was much better controlled. Discharge medications are metoprolol 100 mg BID and diltiazem 120 mg daily. -chads Vasc score of 2 currently, discussed stroke risk with patient and he elected to start anticoagulation. Continue apixaban 5 mg BID. -Echocardiogram was performed which showed dilated left and right atria, but a ejection fraction of 50-55% with no focal wall motion abnormalities. Moderate MR and TR, but no other significant valvular abnormalities. -TSH unremarkable at 4. A1c and fasting lipids do not require therapy at this time. -recommend outpatient cardiology referral. 2. Hypertension, chronic, stable -patient was going to switch between his current lisinopril which he complains of a chronic cough. Held lisinopril at this time and optimize rate control therapy preferentially. He is currently normotensive upon discharge. 3. BPH, chronic, stable -patient is currently asymptomatic -continue home Flomax Dispo: discarged home Exam Vital Signs (past 8 hours): - 02/04/20 04:35 02/04/20 08:00 02/04/20 09:18 Temperature 96.6 F L 97.6 F Pulse Rate 65 92 H 67 Respiratory Rate 16 18 Blood Pressure 124/89 128/87 111/79 Pulse Oximetry 98 98 Oxygen Delivery Method Room Air,CPAP Oxygen Flow Rate 0 Narrative Exam Narrative: GENERAL APPEARANCE: Well developed, well nourished, in no acute distress. SKIN: Inspection of the skin reveals no rashes, ulcerations or petechiae. HEENT: Normocephalic atraumatic, extraocular muscles are intact, oropharynx is clear and mucous membranes are moist, neck is supple without adenopathy NECK: Supple and symmetric. There was no thyroid enlargement, and no tenderness, or masses were felt. CHEST: Normal AP diameter and normal contour without any kyphoscoliosis. LUNGS: Auscultation of the lungs revealed no wheezes, rhonchi, or rales. CARDIOVASCULAR: RRR (however in atrial flutter on monitor) without any murmurs, gallops, rubs. Peripheral pulses were 2+ and symmetric. ABDOMEN: Soft and nontender with normal bowel sounds. No ascites was noted. MUSCULOSKELETAL: There was no tenderness or effusions noted. Muscle strength and tone were normal. EXTREMITIES: No cyanosis, clubbing or edema. NEUROLOGIC: Alert and oriented x 3. Normal affect. Gait was normal. Strength is +5/5 in the Upper Extremities and Lower Extremities Bilaterally. Sensation to touch was normal. Objective Labs Result Diagrams: 02/04/20 04:30 02/04/20 04:30 Labs: Laboratory Results - last 24 hr 02/04/20 02/04/20 04:30 04:30 WBC 4.7 RBC 4.70 Hgb 14.3 Hct 43.0 MCV 91.4 MCH 30.4 MCHC 33.2 RDW 13.5 Plt Count 139 L Neut % (Auto) 60.2 Lymph % (Auto) 26.5 [place] % (Auto) 10.2 Eos % (Auto) 2.4 Baso % (Auto) 0.7 Neut # (Auto) 2800 Lymph # (Auto) 1200 [place] # (Auto) 500 Eos # (Auto) 100 Baso # (Auto) 0 Sodium 139 Potassium 4.9 Chloride 107 Carbon Dioxide 28 BUN 20 Creatinine 0.85 Estimated GFR > 60.0 BUN/Creatinine Ratio 23.5 H Glucose 99 Calcium 9.0 Magnesium 2.2 Total Bilirubin 1.4 H Conjugated Bilirubin 0.0 Unconjugated Bilirubin 1.3 H AST 20 ALT 19 Alkaline Phosphatase 49 Total Protein 6.2 L Albumin 3.8 Globulin 2.4 Albumin/Globulin Ratio 1.6 Discharge Plan Discharge Plan Patient Disposition: Home Discharge comment: You were admitted to the hospital with atrial fibrillation / atrial flutter. You were never symptomatic. Your heart rate improved with medications and were started on a blood thinner. To control your heart rate we had to stop one of your blood pressure medications. You should try and follow up with your PCP this week if possible to check your heart rate and blood pressure and to possibly be referred to a freight car cleaner for atrial fibrillation/flutter. Discharge orders & Medications Prescriptions: New apixaban 5 mg tablet 5 mg PO BID 30 Days Qty: 60 RF: 0 diltiazem HCl 120 mg capsule,extended release 24 hr 120 mg PO DAILY 30 Days Qty: 30 RF: 0 metoprolol succinate 100 mg tablet extended release 24 hr 100 mg PO BID 30 Days Qty: 60 RF: 0 Continued tamsulosin 0.4 mg capsule 0.4 mg PO DAILY RF: 0 sertraline 25 mg tablet 25 mg PO DAILY RF: 0 Discontinued lisinopril 10 mg tablet 10 mg PO BEDTIME RF: 0 Follow up/Referrals: Ximena Canchola MD [Primary Care Provider] - 02/09/20 10:40 am (*Call when you are in the parking lot to check in. *This appointment is at the [facility]. *If you are unable to make it to this appointment, please call as soon as possible to reschedule. ) Discharge Health Status Health Concerns: Atrial fibrillation / flutter Diet/Activity/Treatments Diet: Diet as Tolerated and Low-sodium Activity: As tolerated Visit Report/Discharge Packet Instructions: How to Check Your Pulse, The DASH Diet, DI for Atrial Fibrillation, Apixaban, Metoprolol (By mouth), Diltiazem (By mouth) Visit Report Forms: Patient Portal/API, Stroke Signs & Symptoms Discharge Data Primary Care Provider: Ximena Canchola Attending Provider: Elijah Jalloh Admit Date/Time: 02/02/20 13:40 Discharges patient from system. Discharge Date/Time: 02/04/20 13:00
--- NOTE | 2020-02-04 12:54 | PC.NURSE ---
Pt to dc home per order. Provided d/c packet, educational material re dx, meds, need for f/u appt, stroke education, medication list, medication education (dose, times, next dose due, side effects, monitoring parameters), f/u appt. present for teaching. Both verbalize understanding. Pt states he has a dentist appt for tooth extraction on Sunday. Encouraged pt to clarify procedure due to eliquis. He is agreeable to do so. He is notified of his f/u appt. He states his pharmacy is [facility] in [place] on [facility]. Called pharmacy in [place] and had rx sent to [facility]. Pt/spouse updated. Pt dressed himself and was escorted to POV with all belongings in no distress at 1300. IV and telemetry were discontinued as charted.
== END 2020-02-04 13:00 | disposition home or self-care (01) ==
LOC: ED 13:36 → AC 13:40 → ICU 14:19
PROVIDERS: Admitting Provider Internal Medicine; Emergency Provider Emergency Medicine; PCP Internal Medicine; Visit Provider Internal Medicine
DX: I48.92 Unspecified atrial flutter (principal); R00.0 Tachycardia, unspecified; I10 Essential (primary) hypertension; N40.0 Benign prostatic hyperplasia without lower urinary tract symptoms; Z11.59 Encounter for screening for other viral diseases
CPT/HCPCS: 36415; 71045; 80048; 80053; 80061; 80076; 82550; 82553; 83036; 83690; 83735; 83880; 84443; 84484; 85025; 85379; 85610; 85730; 87635; 93005; 93306; 94762; 96361; 96365; 96366; 96375; 96376; 99284; G0378; J1940

== ENCOUNTER → 2020-02-23 15:38 | Outpatient (CLI) | payer OTHER, SELFPAY ==
[2020-02-02 15:29] VITALS: BMI 29.9
--- NOTE | 2020-02-23 | DI.RAD.S_ITS ---
PROCEDURE: XR SHOULDER RT MIN 2V INDICATIONS: PAIN IN RT SHOULDER TECHNIQUE: 3 views of the shoulder were acquired. COMPARISON: None. FINDINGS: Bones: No fractures or dislocations. No suspicious bony lesions. Visualized ribs appear intact. Soft tissues: No suspicious soft tissue calcifications. IMPRESSION: There is a [id number] degree of AC joint osteoarthritis but no trauma found. Dictated by: Steve Hoffman M.D. on 02/23/2020 at 16:15 Approved by: Steve Hoffman M.D. on 02/23/2020 at 16:15
== END ==
LOC: LAB 15:40 → RAD 15:40
PROVIDERS: PCP Internal Medicine; Referring Provider Internal Medicine; Visit Provider Internal Medicine
DX: M25.511 Pain in right shoulder (principal); M19.011 Primary osteoarthritis, right shoulder
CPT/HCPCS: 73030

== ENCOUNTER → 2020-03-02 11:03 | Outpatient (CLI) | payer OTHER, SELFPAY ==
[2020-02-02 15:29] VITALS: BMI 29.9
--- NOTE | 2020-03-02 | DI.MRI.S_ITS ---
PROCEDURE: MR SHOULDER RT WO CON INDICATIONS: Pain in right shoulder TECHNIQUE: Noncontrast oblique coronal T2 fast spin echo with fat saturation, oblique sagittal T1 spin echo and T2 fast spin echo with fat saturation, axial T1 spin echo and T2 fast spin echo with fat saturation through the shoulder. COMPARISON: [facility], CR, XR SHOULDER RT MIN 2V, 02/23/2020, 14:44. FINDINGS: Image quality: Excellent. Rotator cuff: There is full-thickness pinhole tearing of the anterior aspect of the supraspinatus tendon at the humeral insertion site. There is adjacent moderate grade partial-thickness articular surface tearing of the mid supraspinatus tendon at the humeral insertion site. Low-grade partial-thickness tearing of the posterior supraspinatus and anterior infraspinatus tendons at the humeral insertion site. Subscapularis and teres minor tendons are intact. Bones and bursae: No bone marrow contusions or fractures. Moderate acromioclavicular joint degeneration. The acromion demonstrates conventional anatomy, without an os acromiale. Small amount of subacromial-subdeltoid or subcoracoid bursal fluid is present. Capsule and soft tissues: In the absence of intra-articular contrast, the labrum and glenohumeral ligaments appear intact. The long head of the biceps tendon demonstrates normal location and morphology. The rotator interval appears normal, without fibrosis. The coracohumeral ligament is normal in thickness. IMPRESSION: 1. Full-thickness pinhole tear of the anterior supraspinatus tendon. 2. Partial-thickness tearing of the remainder of the supraspinatus and anterior infraspinatus tendons. 3. Acromioclavicular joint osteoarthritis. 4. Subacromial bursitis. Dictated by: Cristina Piedra M.D. on 03/02/2020 at 14:29 Approved by: Cristina Piedra M.D. on 03/02/2020 at 14:31
== END ==
PROVIDERS: PCP Internal Medicine; Referring Provider Internal Medicine; Visit Provider Internal Medicine
DX: M25.511 Pain in right shoulder (principal); M75.111 Incomplete rotator cuff tear or rupture of right shoulder, not specified as traumatic; M19.011 Primary osteoarthritis, right shoulder; M75.51 Bursitis of right shoulder
CPT/HCPCS: 73221

== ENCOUNTER 2024-11-12 00:02 | Observation (INO) | payer MEDICARE, SELFPAY ==
[2020-02-02 15:29] VITALS: BMI 29.9
[2024-11-12] VITALS (20 sets, daily range): BP systolic 148–189; BP diastolic 88–109; PULSE 56–85; RESP 15–25; TEMP 36.2–36.5; O2SAT 94–99; BMI 26.4
--- NOTE | 2024-11-12 00:05 | ED_ITS ---
HPI - Chest Pain General Chief Complaint: Chest Pain Stated Complaint: chest pressure/upper abd Time Seen by Provider: 11/12/24 00:03 History of Present Illness HPI narrative: 74-year-old male with past medical history of AFib status post ablation 2 years ago, hypertension, presenting for left-sided chest pressure/left upper quadrant abdominal pain pressure, states it started at around 3:00 p.m. yesterday, states that it got worse when he was trying to lay down and sleep therefore decided come into the ED for further evaluation treatment. Describes as a pressure in nature, he denies any pleuritic pain, he denies any other symptoms such as headache visual disturbances shortness of breath fever chills nausea vomiting or any other GI/ symptoms at this time. Not on any blood thinners no recent travel no known traumas Related Data Home Medications Medication Instructions Recorded Confirmed sertraline 25 mg tablet 25 mg PO DAILY 02/02/20 11/12/24 tamsulosin 0.4 mg capsule 0.4 mg PO DAILY PRN Uterine 02/02/20 11/12/24 Contractility/Contractions losartan 25 mg tablet 25 mg PO DAILY 11/12/24 11/12/24 Allergies Allergy/AdvReac Type Severity Reaction Status Date / Time No Known Drug Allergies Allergy Verified 11/12/24 00:16 Review of Systems Review of Systems Narrative: General: Denies fever, chills, weight loss HEENT: Denies headache, eye drainage, eye irritation, head trauma, sore throat, voice change Cardiovascular: Positive chest pain, denies palpitations, tachycardia Respiratory: Denies any shortness of breath, cough, wheeze, stridor GI/: Positive left upper quadrant abdominal pain, denies nausea, vomiting, diarrhea, bright red blood per rectum, melanotic stools, urinary frequency, urinary retention, dysuria, hematuria MSK: Denies any joint pain, muscle pains, swelling Skin: Denies any rashes, lesions, discoloration Neuro: Denies any headache, lightheadedness, dizziness, fainting, weakness Psych: Denies SI/HI Patient History Social History household members: spouse and children Smoking Status: Never smoker alcohol intake frequency: holidays/special occasions only Exam Narrative Exam Narrative: General: Cooperative, well-developed, not in acute distress HEENT: Normocephalic, atraumatic, PERRLA, normal sclera, eyelids normal Neck: Active full range of motion, atraumatic Chest: Normal to inspection, negative crepitus, no overlying erythema ecchymosis Respiratory: Normal respiratory effort, not in acute respiratory distress, clear to auscultation bilaterally negative cough, wheeze, tachypnea, rhonchi, rales Cardiology: Regular rate rhythm negative gallop, murmur, rubs GI/: No tenderness to palpation, soft, non rigid, normal to inspection, exam deferred MSK: Full active range of motion in all 4 extremities, atraumatic, no tenderness to palpation of any bony prominences Skin: No rashes or lesions noted Neuro: Alert awake oriented x3, moves all 4 extremities spontaneously, cranial nerves intact, able to answer all questions appropriately follows commands appropriately Psych: Cooperative, negative suicidal or homicidal ideations Initial Vital Signs Initial Vital Signs: Vital Signs Pulse Rate 85 11/12/24 00:10 Blood Pressure 177/101 H 11/12/24 00:10 Pulse Oximetry 96 11/12/24 00:10 Course Orders Ordered: ED Orders 11/12/24 00:04 EKG-12 Lead Stat 11/12/24 00:10 XR chest 1V Stat 11/12/24 00:11 CT abdomen pelvis w con Stat 11/12/24 00:34 Complete Blood Count AUTO DIFF Stat Comprehensive Metabolic Panel Stat Lipase Stat MAG [Magnesium] Stat Troponin & CK Cardiac Panel Stat 11/12/24 02:40 Trop I [Troponin I] Stat 11/12/24 04:50 Trop I [Troponin I] Stat Discontinued Medications Aspirin (Aspirin 81 Mg Chew Tab) 324 mg PO NOW ONE Stop: 11/12/24 00:11 Last Admin: 11/12/24 00:26 Dose: 324 mg Documented By: LEO Famotidine (Famotidine 20 Mg/2 Ml Vial) 20 mg IV NOW ONE Stop: 11/12/24 00:11 Last Admin: 11/12/24 00:27 Dose: 20 mg Documented By: LEO Sodium Chloride (Normal Saline 0.9%) 1,000 mls @ 1,000 mls/hr IV BOLUS ONE Stop: 11/12/24 02:20 Last Infusion: 11/12/24 02:28 Dose: Infused Documented By: Admin: 11/12/24 01:43 Dose: 1,000 mls/hr Documented By: Losartan Potassium (Losartan 25 Mg Tablet) 25 mg PO NOW ONE Stop: 11/12/24 04:53 Last Admin: 11/12/24 04:59 Dose: 25 mg Documented By: MARIBELL Sertraline HCl (Sertraline 50 Mg Tablet) 25 mg PO NOW ONE Stop: 11/12/24 04:53 Last Admin: 11/12/24 04:59 Dose: 25 mg Documented By: MARIBELL Vital Signs Vital signs: Vital Signs - 8 hr 11/12/24 00:10 11/12/24 00:10 11/12/24 00:16 Temperature 97.2 F L Pulse Rate 85 71 Respiratory Rate 16 Blood Pressure 177/101 H 177/101 H Pulse Oximetry 96 98 Oxygen Delivery Method Room Air 11/12/24 00:22 11/12/24 00:22 11/12/24 00:30 Temperature Pulse Rate 71 70 Respiratory Rate 18 22 Blood Pressure 155/93 H Pulse Oximetry 95 94 Oxygen Delivery Method Room Air 11/12/24 00:30 11/12/24 01:00 11/12/24 01:00 Temperature Pulse Rate 65 Respiratory Rate 19 Blood Pressure 170/95 H 174/88 H Pulse Oximetry 94 Oxygen Delivery Method 11/12/24 01:30 11/12/24 02:00 11/12/24 02:05 Temperature Pulse Rate 66 64 71 Respiratory Rate 21 19 20 Blood Pressure Pulse Oximetry 95 96 97 Oxygen Delivery Method Room Air 11/12/24 02:05 11/12/24 02:33 11/12/24 02:34 Temperature Pulse Rate 73 66 Respiratory Rate 21 21 Blood Pressure 186/94 H Pulse Oximetry 95 95 Oxygen Delivery Method 11/12/24 02:34 11/12/24 03:00 11/12/24 03:00 Temperature Pulse Rate 58 L Respiratory Rate 19 Blood Pressure 184/100 H 172/96 H Pulse Oximetry 95 Oxygen Delivery Method 11/12/24 03:30 11/12/24 03:39 11/12/24 03:39 Temperature Pulse Rate 63 58 L Respiratory Rate 22 20 Blood Pressure 169/109 H Pulse Oximetry 99 96 Oxygen Delivery Method 11/12/24 04:00 11/12/24 04:00 11/12/24 04:30 Temperature Pulse Rate 58 L 56 L Respiratory Rate 20 23 Blood Pressure 177/102 H Pulse Oximetry 98 98 Oxygen Delivery Method Room Air 11/12/24 04:31 11/12/24 04:31 11/12/24 04:37 Temperature Pulse Rate 64 Respiratory Rate 25 H Blood Pressure 183/99 H 169/102 H Pulse Oximetry 98 Oxygen Delivery Method 11/12/24 04:37 11/12/24 05:00 11/12/24 05:00 Temperature Pulse Rate 75 58 L Respiratory Rate 20 20 Blood Pressure 159/98 H Pulse Oximetry 97 Oxygen Delivery Method Room Air MDM - Chest Pain Differential Diagnosis Differential diagnosis: Likely other (ACS, pneumonia, electrolyte abnormality, GERD) Lab Data 11/12/24 00:34 11/12/24 00:34 Labs: Lab Results 11/12/24 11/12/24 11/12/24 Range/Units 00:34 02:40 04:50 WBC 7.8 (4.5-11.0) X10^3/uL RBC 4.73 (4.5-5.9) X10^6/uL Hgb 14.8 (13.5-17.5) g/dL Hct 43.2 (41-53) % MCV 91.3 (80-100) fL MCH 31.3 (26-34) PG MCHC 34.3 (30-36) % RDW 13.6 (11.6-14.8) % Plt Count 124 L (150-400) X10^3/uL Neut % (Auto) 82.3 H (50-75) % Lymph % (Auto) 10.7 L (25-40) % [place] % (Auto) 5.9 (3-14) % Eos % (Auto) 0.6 L (2-4) % Baso % (Auto) 0.5 (0-2) % Neut # (Auto) 6400 (6861-3537) /uL Lymph # (Auto) 800 L (7356-2502) /uL [place] # (Auto) 500 (0-900) /uL Eos # (Auto) 0 (0-450) /uL Baso # (Auto) 0 (0-100) /uL Sodium 138 (137-145) mmol/L Potassium 3.8 (3.4-5.1) mmol/L Chloride 106 (98-107) mmol/L Carbon Dioxide 25 (22-32) mmol/L BUN 17 (9-20) mg/dL Creatinine 0.61 L (0.66-1.25) mg/dL Estimated GFR > 60 (>60) mL/min BUN/Creatinine Ratio 27.9 H (6-22) Glucose 121 H (70-99) mg/dL Calcium 9.1 (8.4-10.2) mg/dL Magnesium 2.1 (1.6-2.3) mg/dL Total Bilirubin 1.4 H (0.2-1.3) mg/dL AST 26 (17-59) IU/L ALT 22 (<50) IU/L Alkaline Phosphatase 58 (38-126) U/L Total Creatine Kinase 117 (55-170) U/L Troponin I 0.039 H 0.041 H 0.039 H (0.01-0.034) ng/mL Total Protein 6.7 (6.3-8.2) g/dL Albumin 4.2 (3.5-5.0) g/dL Globulin 2.5 (1.7-4.1) g/dL Albumin/Globulin Ratio 1.7 (1.0-2.8) Lipase 73 (23-300) U/L Imaging Data Chest x-ray: Radiologist's Impression: [address] [address] XRay Report Signed Patient: Jose A Guzman MR#: [id number] : 1950 Acct:[id number] Age/Sex: 74 / M Date of Service: 11/12/24 Loc: ED Accession Number: [id number] Procedure: XR chest 1V Ordering Provider: Elijah Holden D.O. PROCEDURE: XR CHEST 1V INDICATIONS: chest pain TECHNIQUE: One view of the chest was acquired. COMPARISON: [facility], CR, XR CHEST 1V, 02/02/2020, 13:03. FINDINGS: Surgical changes and devices: None. Lungs and pleura: Lungs are clear. No pleural effusions or pneumothorax. Mediastinum: Mildly tortuous thoracic aorta. Heart size is enlarged. Bones and chest wall: No suspicious bony lesions. Overlying soft tissues appear unremarkable. IMPRESSION: No acute cardiopulmonary pathology. CT scan - abdomen/pelvis: Radiologist's Impression: [address] [address] [address] Scan Report Signed Patient: Jose A Guzman MR#: [id number] : 1950 Acct:[id number] Age/Sex: 74 / M Date of Service: 11/12/24 Loc: ED Accession Number: [id number] Procedure: CT abdomen pelvis w con Ordering Provider: Elijah Holden D.O. PROCEDURE: CT ABDOMEN PELVIS W CON INDICATIONS: epigastric / LUQ abd pain TECHNIQUE: After the administration of intravenous contrast, axial sections acquired from the lung bases to the pubic symphysis. Coronal and sagittal reformats were performed. For radiation dose reduction, the following was used: automated exposure control, adjustment of mA and/or kV according to patient size. COMPARISON: None. FINDINGS: Image quality: Diagnostic. Lower Chest: No significant findings. ABDOMEN: Liver: No solid mass. Well-circumscribed subcentimeter hypodensity in inferior right hepatic lobe is seen too small to adequately characterize series 2, image 50. Gallbladder: calcified stones are seen dependent portion of gallbladder lumen. Gallbladder is mildly distended. No significant gallbladder wall thickening. Biliary ducts: No biliary dilation. Pancreas: No ductal dilation. Spleen: Size is within normal limits. Adrenal Glands: No adrenal nodules. Kidneys and Ureters: Bilateral nonobstructing stones are seen. No hydronephrosis. No solid mass. No complex renal cystic lesion which requires follow up. Stomach and Bowel: There is no bowel obstruction. No abnormal bowel wall thickening or mesenteric fat stranding. No evidence of acute appendicitis or diverticulitis. No abscess collection. Peritoneum: No abnormal intraperitoneal fluid. No free air. Ventral Wall: No significant ventral hernia. Abdominal Nodes: No retroperitoneal or mesenteric adenopathy by size criteria. Vessels: Aorta and inferior vena cava are normal in size. PELVIS: Pelvic Organs: Unremarkable. Bladder: No bladder wall thickening. Calcified stones are noted in dependent portion of left bladder lumen measures 2-3 mm in size. Pelvic Nodes: No enlarged lymph nodes. Miscellaneous: No inguinal hernias are seen. Bones: No aggressive osseous abnormality. IMPRESSION: 1. No bowel obstruction or abnormal bowel wall thickening. No evidence of acute appendicitis or diverticulitis. No free fluid or air. 2. Bilateral nonobstructing renal stones. No hydronephrosis or hydroureter. Normal appearing urinary bladder. Multiple 2-3 mm left-sided bladder stones as above, a recently passed left renal stone cannot be excluded. 3. Cholelithiasis with distended gallbladder. No definite gallbladder wall thickening. No biliary ductal dilatation. Clinical correlation and possible right upper quadrant ultrasound can be done further evaluation of this region if indicated. ECG Data Interpretation: EKG interpreted ED physician sinus 73 beats per minute left axis deviation QTC 458 right bundle branch block noted, nonspecific ST changes no STEMI MDM Narrative Medical decision making narrative: 74-year-old male with past medical history of AFib status post ablation, hypertension, presenting for left-sided chest/left upper quadrant abdominal pain started at around 3:00 p.m. yesterday describes it as a pressure in nature nothing making it better or worse, patient had lab work imaging he had EKG performed here in the emergency department, EKG nonischemic in nature, chest x- ray without any acute cardiopulmonary abnormality patient without any leukocytosis, Chem panel did note elevated bilirubin of 1.4, however this is baseline, CT scan without any acute findings, noted incidental findings of bilateral nonobstructing renal stones, cholelithiasis without signs of cholecystitis, patient is not having any tenderness to palpation of the right upper quadrant, initial troponin 0.039 with repeat 0.041, which is indeterminate at this time, patient without any active chest pain, did discuss with patient given elevated heart score of 4, patient will be admitted to hospital fo.r stress test echo we will continue to trend troponin tell plateau, patient understands and agrees with being admitted, call placed out hospitalist for admission. [id number]: Discussed case with hospitalist Dr. Alfredo, he states that he will like to wait for a repeat 3rd troponin for accepting the patient, he states that so long as it is not a significant elevation will accept the patient, however he states that if it is significantly elevated would like consultation with Cardiology 0545: Repeat troponin downtrending to 0.039, The patient's management plan was discussed Dr. Alfredo, who agrees to admit the patient to their service and assumes care of this patient at this time. Full admission orders will be placed by the primary team. Discharge Plan Departure Patient Disposition: Admitted as Observation Clinical Impression: Chest pain Admit Date/Time: 11/12/24 05:47
--- NOTE | 2024-11-12 00:08 | EKG_ITS ---
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
--- NOTE | 2024-11-12 00:10 | DI.RAD.S_ITS ---
PROCEDURE: XR CHEST 1V INDICATIONS: chest pain TECHNIQUE: One view of the chest was acquired. COMPARISON: [facility], CR, XR CHEST 1V, 02/02/2020, 13:03. FINDINGS: Surgical changes and devices: None. Lungs and pleura: Lungs are clear. No pleural effusions or pneumothorax. Mediastinum: Mildly tortuous thoracic aorta. Heart size is enlarged. Bones and chest wall: No suspicious bony lesions. Overlying soft tissues appear unremarkable. IMPRESSION: No acute cardiopulmonary pathology. Dictated by: Martin Gudino M.D. on 11/12/2024 at 0:50 Approved by: Martin Gudino M.D. on 11/12/2024 at 0:50
--- NOTE | 2024-11-12 00:11 | DI.CT.S_ITS ---
PROCEDURE: CT ABDOMEN PELVIS W CON INDICATIONS: epigastric / LUQ abd pain TECHNIQUE: After the administration of intravenous contrast, axial sections acquired from the lung bases to the pubic symphysis. Coronal and sagittal reformats were performed. For radiation dose reduction, the following was used: automated exposure control, adjustment of mA and/or kV according to patient size. COMPARISON: None. FINDINGS: Image quality: Diagnostic. Lower Chest: No significant findings. ABDOMEN: Liver: No solid mass. Well-circumscribed subcentimeter hypodensity in inferior right hepatic lobe is seen too small to adequately characterize series 2, image 50. Gallbladder: calcified stones are seen dependent portion of gallbladder lumen. Gallbladder is mildly distended. No significant gallbladder wall thickening. Biliary ducts: No biliary dilation. Pancreas: No ductal dilation. Spleen: Size is within normal limits. Adrenal Glands: No adrenal nodules. Kidneys and Ureters: Bilateral nonobstructing stones are seen. No hydronephrosis. No solid mass. No complex renal cystic lesion which requires follow up. Stomach and Bowel: There is no bowel obstruction. No abnormal bowel wall thickening or mesenteric fat stranding. No evidence of acute appendicitis or diverticulitis. No abscess collection. Peritoneum: No abnormal intraperitoneal fluid. No free air. Ventral Wall: No significant ventral hernia. Abdominal Nodes: No retroperitoneal or mesenteric adenopathy by size criteria. Vessels: Aorta and inferior vena cava are normal in size. PELVIS: Pelvic Organs: Unremarkable. Bladder: No bladder wall thickening. Calcified stones are noted in dependent portion of left bladder lumen measures 2-3 mm in size. Pelvic Nodes: No enlarged lymph nodes. Miscellaneous: No inguinal hernias are seen. Bones: No aggressive osseous abnormality. IMPRESSION: 1. No bowel obstruction or abnormal bowel wall thickening. No evidence of acute appendicitis or diverticulitis. No free fluid or air. 2. Bilateral nonobstructing renal stones. No hydronephrosis or hydroureter. Normal appearing urinary bladder. Multiple 2-3 mm left-sided bladder stones as above, a recently passed left renal stone cannot be excluded. 3. Cholelithiasis with distended gallbladder. No definite gallbladder wall thickening. No biliary ductal dilatation. Clinical correlation and possible right upper quadrant ultrasound can be done further evaluation of this region if indicated. Dictated by: Martin Gudino M.D. on 11/12/2024 at 1:31 Approved by: Martin Gudino M.D. on 11/12/2024 at 1:36
[2024-11-12] MEDS: ASPIRIN 81 MG CHEW TAB 324 MG PO (00:26)
[2024-11-12] MEDS: FAMOTIDINE 20 MG/2 ML VIAL IV (00:27)
[2024-11-12 00:48] LABS: Add Manual Diff / Slide Review NO; Basophils Absolute Auto 0 /uL (0-100); Basophils Percent Auto 0.5 % (0-2); Eosinophils Absolute Auto 0 /uL (0-450); Eosinophils Percent Auto 0.6 % (2-4); Hematocrit 43.2 % (41-53); Hemoglobin 14.8 g/dL (13.5-17.5); Lymphocytes Absolute Auto 800 /uL (1100-4500); Lymphocytes Percent Auto 10.7 % (25-40); Mean Corpuscular HGB Conc 34.3 % (30-36); Mean Corpuscular Hemoglobin 31.3 PG (26-34); Mean Corpuscular Volume 91.3 fL (80-100); Monocytes Absolute Auto 500 /uL (0-900); Monocytes Percent Auto 5.9 % (3-14); Neutrophils Absolute Auto 6400 /uL (1500-7000); Neutrophils Percent Auto 82.3 % (50-75); Platelet Count 124 X10^3/uL (150-400); Red Blood Cell Count 4.73 X10^6/uL (4.5-5.9); Red Cell Distribution Width 13.6 % (11.6-14.8); White Blood Cell Count 7.8 X10^3/uL (4.5-11.0)
[2024-11-12 00:59] LABS: Alanine Aminotransferase 22 IU/L (<50); Albumin 4.2 g/dL (3.5-5.0); Albumin Globulin Ratio 1.7 (1.0-2.8); Alkaline Phosphatase 58 U/L (38-126); Aspartate Aminotransferase 26 IU/L (17-59); BUN Creatinine Ratio 27.9 (6-22); Bilirubin Total 1.4 mg/dL (0.2-1.3); Blood Urea Nitrogen 17 mg/dL (9-20); Calcium 9.1 mg/dL (8.4-10.2); Carbon Dioxide 25 mmol/L (22-32); Chloride 106 mmol/L (98-107); Creatine Kinase 117 U/L (55-170); Estimated Glomerular Filt Rate > 60 mL/min (>60); Globulin 2.5 g/dL (1.7-4.1); Glucose 121 mg/dL (70-99); HEMOLYSIS 39 (0-50); Lipase 73 U/L (23-300); Potassium 3.8 mmol/L (3.4-5.1); Sodium 138 mmol/L (137-145); Total Protein 6.7 g/dL (6.3-8.2)
[2024-11-12 01:00] LABS: Magnesium 2.1 mg/dL (1.6-2.3)
[2024-11-12 01:11] LABS: Troponin I 0.039 ng/mL (0.01-0.034)
[2024-11-12] MEDS: SODIUM CHLORIDE 0.9% 1,000 ML 1000 ML IV (01:43)
[2024-11-12 03:10] LABS: Troponin I 0.041 ng/mL (0.01-0.034)
[2024-11-12] MEDS: LOSARTAN 25 MG TABLET PO ×2 (04:59→09:12)
[2024-11-12] MEDS: SERTRALINE 50 MG TABLET 25 MG PO ×2 (04:59→09:12)
[2024-11-12 05:24] LABS: Troponin I 0.039 ng/mL (0.01-0.034)
--- NOTE | 2024-11-12 06:07 | DI.NM.S_ITS ---
PROCEDURE: NM KIMI PERF SPECT REST & STR Rest and exercise myocardial perfusion SPECT with gated imaging and ejection fraction RADIOPHARMACEUTICAL: 11.5 mCi Tc-99m sestamibi IV at rest and 27.3 mCi Tc-99m sestamibi IV at peak exercise. A one day-protocol was performed. INDICATIONS: chest pain TECHNIQUE: Radiopharmaceutical was injected at peak stress test, and also at rest. SPECT images were obtained. SPECT myocardial perfusion images were displayed in short axis, horizontal long axis, and vertical long axis views. Gated images were reviewed using [employer] software. COMPARISON: None. CARDIAC STRESS: A standard [place] treadmill exercise tolerance test was performed by the patient under the supervision of an attending staff. The patient exercised for 6 minutes and 0 seconds; functional aerobic impairment (MARIAH) is -3%. Hemodynamic data: There is normal blood pressure and heart rate response to exercise stress. Patient achieved 90% of maximum predicted heart rate at peak exercise. Symptoms: Patient had 1/10 chest discomfort at rest that didn't worsen with exercise. EKG: Resting ECG showed sinus rhythm with RBBB. No diagnostic EKG changes of ischemia; no ectopy. FINDINGS: Raw data: There is good myocardial labeling by radiotracer. No significant motion artifacts. Ayto-sl-iztad ratio is 0.32 (normal is less than 0.38 for sestamibi tracer, and less than 0.50 for thallium tracer). Left ventricle function: Gated images demonstrate normal left ventricle wall thickening. No segmental wall motion abnormality. No transient ischemic dilation; TID is 0.96 (normal less than 1.3). The left ventricle resting end-diastolic volume is 130 mL. Left ventricle stress ejection fraction is 74%; normal values are above 45%. Myocardial perfusion: There is a moderately intense fixed defect in the basal to mid lateral wall that improves significantly with prone imaging, suggesting artifact but old non-transmural infarction can't be definitively excluded. IMPRESSION: Low risk, probably normal treadmill nuclear stress test from inducible ischemia standpoint. 1) There is a moderately intense fixed defect in the basal to mid lateral wall that improves significantly with prone imaging, suggesting artifact but old non-transmural infarction can't be definitively excluded. 2) Normal left ventricular size, wall motion, and systolic function (EF post stress 74%). 3) No diagnostic ST changes during exercise or recovery. 4) Patient had 1/10 chest discomfort at rest that didn't worsen with exercise. 5) Fair exercise tolerance (7METs, MARIAH -3%). Target heart rate reached. Appropriate BP response to exercise. 6) No prior nuclear stress test available for comparison. Dictated by: Willian Lopez MD on 11/12/2024 at 13:05 Approved by: Willian Lopez MD on 11/12/2024 at 13:09
--- NOTE | 2024-11-12 06:07 | DI.ECHO.S_ITS ---
[place] +---------+ Hospital : : [address] : : [place] : : [id number] : : Phone: [phone] Echocardiogram Report + + :Name: LIN ARTEAGA Study Date: 11/12/2024 Height: 71 in : :[facility] ReadingLocation: Weight: 190 lb : : Gender: Male BSA: 2.1 m2 : :: 1950 Age: 74 yrs BP: 189/104 mmHg: :Reason For Study: CHEST PAIN : :Ordering Physician: MACK, : :SAMANTA LE Performed By: Amanda Cali : :Referring: SAMANTA GIRON MD : + + Interpretation Summary 1. The left ventricular contractility is normal. Estimate ejection fraction is greater than 60% with no segmental wall motion abnormality. Mild asymmetrical septal hypertrophy without obvious obstruction. Grade 2 diastolic dysfunction. 2. The right ventricular contractility is normal. 3. Biatrial enlargement. 4. Mild to moderate mitral regurgitation. 5. Mild aortic insufficiency. 6. Mild tricuspid regurgitation with estimated pulmonary systolic artery pressures of 29 mmHg. 7. No obvious intracardiac shunts. 8. No obvious intracardiac masses nor thrombi. 9. No hemodynamically significant pericardial effusion. 10. Dilated ascending thoracic aorta without obvious dissection. Conclusion: Normal biventricular systolic function with mild to moderate valvular insufficiencies. When compared with previous echocardiogram, there is improvement of the left ventricular systolic function with mild progression of valvular insufficiencies. Procedure: A two-dimensional transthoracic echocardiogram with color flow and Doppler was performed. The study quality was technically adequate. Comparison is made with the echocardiogram of 02/03/2020. The patient was in sinus bradycardia with heart rates between 51-66 bpm during the exam. Left Ventricle: The left ventricle is normal in size. Proximal septal thickening is noted. The ejection fraction is estimated to be 60-65%. Diastolic parameters suggest a pseudonormalization pattern, consistent with probable elevated filling pressures. Right Ventricle: The right ventricle is normal in size and function. Atria: The left atrium is severely dilated. The right atrium is mildly dilated. There is no Doppler evidence for an interatrial shunt. Mitral Valve: There is mild mitral annular calcification. The mitral valve leaflets appear moderately thickened, but open well. There is mild to moderate mitral regurgitation. Aortic Valve: The aortic valve is trileaflet. The aortic valve is moderately calcified. There is minimally reduced leaflet mobility. There is no hemodynamically significant valvular aortic stenosis. There is mild aortic regurgitation. Tricuspid Valve: The tricuspid valve is not well visualized, but is grossly normal. There is mild tricuspid regurgitation. The right ventricular systolic pressure is estimated to be at least 29 mmHg based on an estimated right atrial pressure of 3 mm Hg. Pulmonic Valve: The pulmonic valve is not well visualized. There is no pulmonic valvular regurgitation. Great Vessels: The aortic root is borderline dilated. The ascending aorta is moderate-severely enlarged. The inferior vena cava was not visualized. Pericardium/ Pleura There is no pericardial effusion. There is no pleural effusion. MMode/2D Measurements & Calculations LVIDd: 5.7 cm LVOT diam: 2.1 cm LVIDs: 3.9 cm Ao root diam: 3.7 cm FS: 30.6 % asc Aorta Diam: 4.8 cm EPSS: 0.67 cm Ao Arch Diam (Prox Trans): 4.0 cm IVSd: 0.91 cm LVPWd: 0.90 cm LV manjarrez. diameter/BSA (cm/m^2): 2.8 LV sys. diameter/BSA (cm/m^2): 1.9 LA A2 area: 28.9 cm2 RA long axis: 6.6 cm LA A4 area: 26.2 cm2 RA area: 23.9 cm2 LA length (vol): 6.1 cm RA vol: 73.0 ml LA vol: 106.0 ml RA : 35.4 ml/m2 LA vol index: 51.4 ml/m2 RVD1 (basal): 3.5 cm TAPSE: 2.3 cm Doppler Measurements & Calculations Ao V2 max: 155.6 cm/sec LVOT Max Tyron: 115.6 cm/sec Ao V2 mean: 107.2 cm/sec LV V1 max P.3 mmHg Ao max P.7 mmHg LV V1 VTI: 23.6 cm Ao mean P.3 mmHg CARLEEN(I,D): 2.2 cm2 Ao V2 VTI: 35.0 cm CARLEEN(V,D): 2.5 cm2 sev ratio: 0.68 CARLEEN indexed to BSA (cm^2/m^2): 1.1 MV E max tyron: 110.6 cm/sec TR max tyron: 254.0 cm/sec MV A max tyron: 82.5 cm/sec TR max P.8 mmHg MV E/A: 1.3 PA V2 max: 95.2 cm/sec Med Peak E' Tyron: 7.5 cm/sec PA V2 mean: 67.4 cm/sec E/E' med: 14.7 PA mean P.0 mmHg Lat Peak E' Tyron: 7.0 cm/sec PA pr(Accel): 18.6 mmHg E/E' lat: 15.7 E/e' average: 15.2 MV dec time: 0.28 sec MVA(VTI): 2.1 cm2 MV V2 mean: 67.9 cm/sec SV(LVOT): 78.2 ml MV mean P.2 mmHg MV V2 VTI: 36.8 cm Reading Physician:MARI
--- NOTE | 2024-11-12 06:19 | PM.HP.1 ---
History of Present Illness History of Present Illness Chief complaint: chest pressure/upper abd Narrative: 74-year-old male with past medical history of hypertension, BPH, depression and atrial fibrillation status post ablation 2 years ago presents with complaint of left lower chest and left upper abdominal pain. Per the patient's report, the patient started to notice some left-sided chest and upper quadrant abdominal pain that started 3 PM yesterday. Patient denies any injury in that area but states that the pain is pressure-like, nonradiating, moderate to severe and not associated with exertion or movement. The patient denies any known history of coronary disease. Otherwise the patient denies any recent fever, chills, nausea, vomiting, diarrhea, shortness of breath, coughing, GI bleed or syncope. In the emergency room, the patient was hemodynamically stable. EKG shows sinus rhythm without any signs of acute ST or T wave changes to suggest acute ischemia. However labs shows an initial troponin of 0.39 and repeat 0.41. The third troponin was done and was down to 0.039. Lipase normal and LFT relatively normal (bili slightly elevated at 1.4 but this is chronic and unchanged). The patient's pain did improve somewhat prior ER physician. CT abdomen and pelvis shows no sign of acute etiology. CXR negative. Again the patient was hemodynamically stable without tachycardia or hypoxemia. Due to the patient's risk factor our ER physician requested that we admit the patient to monitor overnight and obtain cardiac stress test. [facility] Social History household members: spouse and children Smoking Status: Never smoker alcohol intake: never Meds Home Medications and Allergies Home Medications Medication Instructions Recorded Confirmed Type sertraline 25 mg tablet 25 mg PO DAILY 02/02/20 11/12/24 History tamsulosin 0.4 mg capsule 0.4 mg PO DAILY PRN Uterine 02/02/20 11/12/24 History Contractility/Contractions losartan 25 mg tablet 25 mg PO DAILY 11/12/24 11/12/24 History Allergies Allergy/AdvReac Type Severity Reaction Status Date / Time No Known Drug Allergies Allergy Verified 11/12/24 00:16 Review of Systems Review of Systems ROS: Yes All systems reviewed with the patient and are negative except as otherwise documented Exam Vital Signs (past 8 hours): - 11/12/24 00:10 11/12/24 00:10 11/12/24 00:16 Temperature 97.2 F L Pulse Rate 85 71 Respiratory Rate 16 Blood Pressure 177/101 H 177/101 H Pulse Oximetry 96 98 Oxygen Delivery Method Room Air 11/12/24 00:22 11/12/24 00:22 11/12/24 00:30 Temperature Pulse Rate 71 70 Respiratory Rate 18 22 Blood Pressure 155/93 H Pulse Oximetry 95 94 Oxygen Delivery Method Room Air 11/12/24 00:30 11/12/24 01:00 11/12/24 01:00 Temperature Pulse Rate 65 Respiratory Rate 19 Blood Pressure 170/95 H 174/88 H Pulse Oximetry 94 Oxygen Delivery Method 11/12/24 01:30 11/12/24 02:00 11/12/24 02:05 Temperature Pulse Rate 66 64 71 Respiratory Rate 21 19 20 Blood Pressure Pulse Oximetry 95 96 97 Oxygen Delivery Method Room Air 11/12/24 02:05 11/12/24 02:33 11/12/24 02:34 Temperature Pulse Rate 73 66 Respiratory Rate 21 21 Blood Pressure 186/94 H Pulse Oximetry 95 95 Oxygen Delivery Method 11/12/24 02:34 11/12/24 03:00 11/12/24 03:00 Temperature Pulse Rate 58 L Respiratory Rate 19 Blood Pressure 184/100 H 172/96 H Pulse Oximetry 95 Oxygen Delivery Method 11/12/24 03:30 11/12/24 03:39 11/12/24 03:39 Temperature Pulse Rate 63 58 L Respiratory Rate 22 20 Blood Pressure 169/109 H Pulse Oximetry 99 96 Oxygen Delivery Method 11/12/24 04:00 11/12/24 04:00 11/12/24 04:30 Temperature Pulse Rate 58 L 56 L Respiratory Rate 20 23 Blood Pressure 177/102 H Pulse Oximetry 98 98 Oxygen Delivery Method Room Air 11/12/24 04:31 11/12/24 04:31 11/12/24 04:37 Temperature Pulse Rate 64 Respiratory Rate 25 H Blood Pressure 183/99 H 169/102 H Pulse Oximetry 98 Oxygen Delivery Method 11/12/24 04:37 11/12/24 05:00 11/12/24 05:00 Temperature Pulse Rate 75 58 L Respiratory Rate 20 20 Blood Pressure 159/98 H Pulse Oximetry 97 Oxygen Delivery Method Room Air 11/12/24 05:30 11/12/24 05:30 Temperature Pulse Rate 61 Respiratory Rate 23 Blood Pressure 189/104 H Pulse Oximetry 98 Oxygen Delivery Method Oxygen Delivery Method Room Air Narrative Exam Narrative: Physical Exam: GENERAL: The patient is not in any acute distressed. Awake and alert. HEENT: Nonicteric sclerae, PERRLA, EOMI. Oropharynx clear. Moist mucous membranes. Conjunctivae appear well perfused. HEART: Regular rate and rhythm without murmurs. No lower extremities edema. LUNGS: Clear to auscultation bilaterally. No wheezing, crackles or rhonchi ABDOMEN: Soft, positive bowel sounds, nontender. SKIN: No rash, no excessive bruising, petechiae, or purpura. NEUROLOGIC: AxO x 3. Cranial nerves II-XII intact without motor/sensory deficit. Objective Labs 11/12/24 00:34 11/12/24 00:34 Labs: Laboratory Results - last 24 hr 11/12/24 11/12/24 11/12/24 00:34 02:40 04:50 WBC 7.8 RBC 4.73 Hgb 14.8 Hct 43.2 MCV 91.3 MCH 31.3 MCHC 34.3 RDW 13.6 Plt Count 124 L Neut % (Auto) 82.3 H Lymph % (Auto) 10.7 L [place] % (Auto) 5.9 Eos % (Auto) 0.6 L Baso % (Auto) 0.5 Neut # (Auto) 6400 Lymph # (Auto) 800 L [place] # (Auto) 500 Eos # (Auto) 0 Baso # (Auto) 0 Sodium 138 Potassium 3.8 Chloride 106 Carbon Dioxide 25 BUN 17 Creatinine 0.61 L Estimated GFR > 60 BUN/Creatinine Ratio 27.9 H Glucose 121 H Calcium 9.1 Magnesium 2.1 Total Bilirubin 1.4 H AST 26 ALT 22 Alkaline Phosphatase 58 Total Creatine Kinase 117 Troponin I 0.039 H 0.041 H 0.039 H Total Protein 6.7 Albumin 4.2 Globulin 2.5 Albumin/Globulin Ratio 1.7 Lipase 73 Assessment & Plan Assessment & Plan narrative: Chest pain. Admit the patient to medical telemetry as observation. Of note patient troponin trended 0.039-0.041 and back down to 0.039. The patient currently is chest pain-free. EKG shows no acute sign of ischemia. Will continue to monitor change chest pain. Echocardiogram as well as nuclear stress test ordered. Lipid panel as well as A1c ordered. Continue aspirin and provide as needed nitroglycerin. Hypertension. Monitor blood pressure resume home medication accordingly. BPH. Resume home Flomax. Depression. Resume home sertraline. DVT prophylaxis SCDs due to observational status. CODE STATUS full code. Disposition likely home in 1 to 2 days. - As the provider of this telehealth evaluation, requested by the patient's evaluating physician, I attest that I introduced myself to the patient, provided my credentials and determined that telemedicine via a real-time, 2 way interactive audio and video platform is an appropriate and effective means of providing this service. - I reviewed the patient's chart and had a discussion with the member of the patient's treatment team. - The patient and I mutually agreed with continuation of this evaluation via telemedicine. The patient consented for the telemedicine evaluation. - This virtual encounter was taken place from [place] by Dr. Bryant Alfredo. The patient was evaluated at [facility]. The encounter was approximately 35 minutes. The nurse was present during the entire time of the encounter and was able to move the stethoscope in appropriate directions. Time-Based Coding :: [TOTAL MINUTES] spent with patient and on the chart (including review of chart, obtaining history, exam, reviewing outside data, placing orders, documenting exam and treatment plan, and counseling patient) on [DATE]. Quality VTE Deep Vein Thrombosis/Pulmonary Embolism Present on Admission: No
[2024-11-12] MEDS: SODIUM CHLORIDE 0.9% FLUSH 10 ML IV (09:12)
--- NOTE | 2024-11-12 11:27 | CM.DANOTE ---
Initial DCP Assessment Note Pt is a 74 yo male, resident of [place], admitted OBS for chest pain r/o. PCP: Ximena Canchola Payer: Miguel Angel CAMPOVERDE Reviewed chart, pt discussed in multidisciplinary rounds this morning. Patient is expected to discharge home this afternoon after stress test. Patient lives independently w/sp and adult daughter. Patient has no hx of HH or SNF. No barriers identified at this time to patient's safe discharge home w/family. CM team will plan to follow clinical course closely in case any DC needs or concerns arise. JOE Pope Discharge Planning/Care Management CM Discharge Assessment Start: 11/12/24 05:55 Freq: Status: Active Protocol: Document 11/12/24 11:22 STEPHANIE (Rec: 11/12/24 11:27 STEPHANIE [id number]) Discharge Planning Assessment Assigned Nanoelectronics Engineer JOE Granados DPOA/Assigned Designee Name Sp Brenda Guzman Advance Directives? No History Provided By Patient,Medical Record Has Patient been admitted in last 30 No days? Prior Living Arrangements House Household Members spouse,children Type of transporation used prior to Drives own vehicle admit Independent with ADL's Yes Is patient alert and oriented? Yes Barriers to Discharge No Discharge Plan Home Transportation Arrangement Family Referrals Initiated None needed
--- NOTE | 2024-11-12 13:45 | PM.DS.1 ---
History of Present Illness History of Present Illness Chief complaint: chest pressure/upper abd Narrative: From H&P: 74-year-old male with past medical history of hypertension, BPH, depression and atrial fibrillation status post ablation 2 years ago presents with complaint of left lower chest and left upper abdominal pain. Per the patient's report, the patient started to notice some left-sided chest and upper quadrant abdominal pain that started 3 PM yesterday. Patient denies any injury in that area but states that the pain is pressure-like, nonradiating, moderate to severe and not associated with exertion or movement. The patient denies any known history of coronary disease. Otherwise the patient denies any recent fever, chills, nausea, vomiting, diarrhea, shortness of breath, coughing, GI bleed or syncope. In the emergency room, the patient was hemodynamically stable. EKG shows sinus rhythm without any signs of acute ST or T wave changes to suggest acute ischemia. However labs shows an initial troponin of 0.39 and repeat 0.41. The third troponin was done and was down to 0.039. Lipase normal and LFT relatively normal (bili slightly elevated at 1.4 but this is chronic and unchanged). The patient's pain did improve somewhat prior ER physician. CT abdomen and pelvis shows no sign of acute etiology. CXR negative. Again the patient was hemodynamically stable without tachycardia or hypoxemia. Due to the patient's risk factor our ER physician requested that we admit the patient to monitor overnight and obtain cardiac stress test. Discharge Providers Provider Date of admission: 11/12/24 05:47 Discharge Date: 11/12/24 Primary care physician: Ximena Canchola MD Consults: None. Discharge provider: Abilio Morales MD Summary Hospital Course Discharge Diagnosis: 1. Chest pain. Present on admission and resolved. 2. Possible biliary colic, present on admission and resolved. 3. Demand ischemia, present on admission and stable. 4. Hypertension. Present on admission and stable. 5. BPH. Present on admission and stable. 6. Depression. Present on admission and stable. Hospital Course: He was admitted with atypical chest pain. ECG revealed sinus rhythm and right bundle branch block. He was a history of atrial fibrillation and ablation at [facility]. He was no known history of CAD. Serial cardiac enzymes were stable (very minimal elevation), echo was unremarkable as noted below and a nuclear stress test was low risk. His symptoms resolved without intervention. He did note eating a burger at burger masked her earlier in the day and wonders if this has a relation. No clear dyspeptic symptoms. No history of exertional chest pain. He was felt to be low risk and stable for discharge home with close follow up for recurrent symptoms. CT dated indicated distended gallbladder and cholelithiasis without evidence of cholecystitis. This is somewhat consistent with the possibility of biliary colic after his cheeseburger. Status at Discharge Cognitive/behavioral status at discharge: oriented Functional status at discharge: independent ambulation Overall status at discharge: patient is back to baseline Time Spent with Patient Time spent: Greater than 30 minutes Exam Vital Signs (past 8 hours): - 11/12/24 12:00 Temperature 97.7 F Pulse Rate 61 Respiratory Rate 15 Blood Pressure 148/93 H Pulse Oximetry 96 Oxygen Flow Rate 0 Oxygen Delivery Method Room Air Oxygen Flow Rate 0 Narrative Exam Narrative: NAD, alert and oriented. Fluent speech. Lungs are clear, normal rate and effort. Heart is regular, no murmur gallop or rub. Abdomen is soft, non distended. Extremities are free of edema. Objective ECG Impression: ntervals [place] Rate: 73 P: 44 RI: 182 QRS: -44 QRSD: 146 T: 1 QT: 416 QTc: 458 Interpretive Statements Normal sinus rhythm Left axis deviation Right bundle branch block (old) Minimal voltage criteria for LVH, may be normal variant ( R in aVL ) Imaging Multiple studies:: Radiologist's impression: Nuclear stress test: IMPRESSION: Low risk, probably normal treadmill nuclear stress test from inducible ischemia standpoint. 1) There is a moderately intense fixed defect in the basal to mid lateral wall that improves significantly with prone imaging, suggesting artifact but old non-transmural infarction can't be definitively excluded. 2) Normal left ventricular size, wall motion, and systolic function (EF post stress 74%). 3) No diagnostic ST changes during exercise or recovery. 4) Patient had 1/10 chest discomfort at rest that didn't worsen with exercise. 5) Fair exercise tolerance (7METs, MARIAH -3%). Target heart rate reached. Appropriate BP response to exercise. 6) No prior nuclear stress test available for comparison. Echo: 1. The left ventricular contractility is normal. Estimate ejection fraction is greater than 60% with no segmental wall motion abnormality. Mild asymmetrical septal hypertrophy without obvious obstruction. Grade 2 diastolic dysfunction. 2. The right ventricular contractility is normal. 3. Biatrial enlargement. 4. Mild to moderate mitral regurgitation. 5. Mild aortic insufficiency. 6. Mild tricuspid regurgitation with estimated pulmonary systolic artery pressures of 29 mmHg. 7. No obvious intracardiac shunts. 8. No obvious intracardiac masses nor thrombi. 9. No hemodynamically significant pericardial effusion. 10. Dilated ascending thoracic aorta without obvious dissection. Conclusion: Normal biventricular systolic function with mild to moderate valvular insufficiencies. When compared with previous echocardiogram, there is improvement of the left ventricular systolic function with mild progression of valvular insufficiencies. Abdomen pelvis CT: 1. No bowel obstruction or abnormal bowel wall thickening. No evidence of acute appendicitis or diverticulitis. No free fluid or air. 2. Bilateral nonobstructing renal stones. No hydronephrosis or hydroureter. Normal appearing urinary bladder. Multiple 2-3 mm left-sided bladder stones as above, a recently passed left renal stone cannot be excluded. 3. Cholelithiasis with distended gallbladder. No definite gallbladder wall thickening. No biliary ductal dilatation. Clinical correlation and possible right upper quadrant ultrasound can be done further evaluation of this region if indicated. Chest x-ray: No acute cardiopulmonary pathology. Labs 11/12/24 00:34 11/12/24 00:34 Labs: Laboratory Results - last 24 hr 11/12/24 11/12/24 11/12/24 00:34 02:40 04:50 WBC 7.8 RBC 4.73 Hgb 14.8 Hct 43.2 MCV 91.3 MCH 31.3 MCHC 34.3 RDW 13.6 Plt Count 124 L Neut % (Auto) 82.3 H Lymph % (Auto) 10.7 L [place] % (Auto) 5.9 Eos % (Auto) 0.6 L Baso % (Auto) 0.5 Neut # (Auto) 6400 Lymph # (Auto) 800 L [place] # (Auto) 500 Eos # (Auto) 0 Baso # (Auto) 0 Sodium 138 Potassium 3.8 Chloride 106 Carbon Dioxide 25 BUN 17 Creatinine 0.61 L Estimated GFR > 60 BUN/Creatinine Ratio 27.9 H Glucose 121 H Calcium 9.1 Magnesium 2.1 Total Bilirubin 1.4 H AST 26 ALT 22 Alkaline Phosphatase 58 Total Creatine Kinase 117 Troponin I 0.039 H 0.041 H 0.039 H Total Protein 6.7 Albumin 4.2 Globulin 2.5 Albumin/Globulin Ratio 1.7 Lipase 73 PFSH Social History household members: spouse and children Smoking Status: Never smoker alcohol intake: never Discharge Assessment & Plan Assessment and Plan Assessment: 1. Chest pain. Present on admission and resolved. 2. Possible biliary colic, present on admission and resolved. 3. Demand ischemia, present on admission and stable. 4. Hypertension. Present on admission and stable. 5. BPH. Present on admission and stable. 6. Depression. Present on admission and stable. Plan of Treatment: Discharge home, recommend antacids for the next several weeks. He knows to follow up if he has recurrent pain in the pattern of similar episodes after dietary indiscretions may support gallbladder attacks. Discharge Plan Discharge Plan Patient Disposition: Home Provider Discharge Comment: Low risk nuclear stress test and normal echo. Patient is stable for discharge home with reassurance. Discharge orders & Medications Prescriptions: Continued tamsulosin 0.4 mg capsule 0.4 mg PO DAILY PRN (Reason: Uterine Contractility/Contractions) sertraline 25 mg tablet 25 mg PO DAILY Patient Comments: take 2 tablets by mouth every other day ALTERNATING with 1 tablet every other day losartan 25 mg tablet 25 mg PO DAILY Follow up/Referrals: Ximena Canchola MD [Primary Care Provider] - Diet/Activity/Treatments Diet: Regular Visit Report/Discharge Packet Instructions: DI for Atypical Chest Pain Stand Alone Forms: Patient Portal/API Discharge Data Primary Care Provider: Ximena Canchola Attending Provider: Bryant Alfredo Admit Date/Time: 11/12/24 05:47 Quality VTE Deep Vein Thrombosis/Pulmonary Embolism Present on Admission: No
--- NOTE | 2024-11-12 14:33 | PC.NURSE ---
Day shift: Discharge instructions gone over with patient by JAYANT Mishra Patient stated understanding, all questions answered. PIV + tele removed prior to discharge. All belongings with patient. JAYANT Bedoya escorted patient to exit where patient plans to drive himself home.
== END 2024-11-12 14:30 | disposition home or self-care (01) ==
LOC: ED 04:06 → AC 05:47
PROVIDERS: Admitting Provider Internal Medicine; Emergency Provider Student in an Organized Health Care Education/Training Program; PCP Internal Medicine; Referring Provider Student in an Organized Health Care Education/Training Program; Visit Provider Internal Medicine
DX: I24.89 Other forms of acute ischemic heart disease (principal); R10.12 Left upper quadrant pain; I10 Essential (primary) hypertension; N40.0 Benign prostatic hyperplasia without lower urinary tract symptoms; F32.A Depression, unspecified
CPT/HCPCS: 36415; 71045; 74177; 78452; 80053; 82550; 83690; 83735; 84484; 85025; 93005; 93017; 93306; 96361; 96374; 99284; G0378; A9502; Q9967